=== PATIENT | female | born 1995 | race Caucasian/White ===

== ENCOUNTER → 2017-09-12 19:13 | Outpatient (CLI) | payer OTHER, SELFPAY ==
[2017-09-17 14:35] LABS: HPV APTIMA, High Risk Negative (Negative)
== END ==
PROVIDERS: Family Provider Family Medicine; PCP Family Medicine; Visit Provider Obstetrics & Gynecology
DX: Z12.4 Encounter for screening for malignant neoplasm of cervix (principal)
CPT/HCPCS: 88175; G0145

== ENCOUNTER → 2019-03-13 10:32 | Outpatient (CLI) | payer OTHER, SELFPAY ==
[2019-02-18 11:14] VITALS: BMI 40.0
[2019-03-13 11:47] LABS: Follicle Stimulating Hormone 3.2 mIU/mL; Prolactin 7.6 ng/mL; Thyroid Stim Hormone (TSH) 1.49 uIU/mL (0.358-3.74)
== END ==
PROVIDERS: Family Provider Family Medicine; PCP Family Medicine; Referring Provider Nurse Practitioner Women's Health; Visit Provider Nurse Practitioner Women's Health
DX: N91.2 Amenorrhea, unspecified (principal)
CPT/HCPCS: 36415; 83001; 84146; 84443

== ENCOUNTER → 2019-03-26 11:33 | Outpatient (CLI) | payer OTHER, SELFPAY ==
[2019-02-18 11:14] VITALS: BMI 40.0
[2019-03-26 13:23] LABS: Estradiol 78.4 pg/mL
== END ==
PROVIDERS: Family Provider Family Medicine; PCP Family Medicine; Referring Provider Obstetrics & Gynecology; Visit Provider Obstetrics & Gynecology
DX: E28.2 Polycystic ovarian syndrome (principal)
CPT/HCPCS: 36415; 82670

== ENCOUNTER → 2019-04-29 07:12 | Outpatient (CLI) | payer OTHER, SELFPAY ==
[2019-02-18 11:14] VITALS: BMI 40.0
[2019-04-29 07:54] LABS: Glucose 75GTT - Fasting 109 mg/dL (70-99)
[2019-04-29 08:01] LABS: AST(SGOT) 20 U/L (15-37); Alanine Aminotransfer ALT/SGPT 38 U/L (13-56); Albumin, Serum 3.8 g/dL (3.2-5.0); Alkaline Phosphatase 91 U/L (45-117); Anion Gap 6 (5-15); BUN 10 mg/dL (7-18); BUN/Creat Ratio 12.7 RATIO (10-20); Bilirubin, Direct 0.13 mg/dL (0.00-0.30); Calcium,Total 8.8 mg/dL (8.5-10.1); Chloride 105 mmol/L (98-107); Cholesterol 174 mg/dL (200); Creatinine, Serum 0.78 mg/dL (0.55-1.02); EST Glomerular Filtration Rate 95 mL/min (>60); Est Glom Filt Rate - Afr Amer 115 mL/min (>60); Globulin 4.6 g/dL (2.2-4.2); Glucose 110 mg/dL (74-106); High Density Lipoprotein 32 mg/dL; Phosphorus 3.3 mg/dL (2.5-4.9); Potassium 3.8 mmol/L (3.5-5.1); Protein, Total 8.4 g/dL (6.4-8.2); Sodium Level 138 mmol/L (136-145); Triglycerides 177 mg/dL; Very Low Density Lipoprotein 35 mg/dL (5-40)
[2019-04-29 08:04] LABS: Hemoglobin A1c 5.7 % (4.2-6.3)
[2019-04-29 09:15] LABS: Glucose 75GTT - 30 minutes 142 mg/dL (100-160)
[2019-04-29 09:15] LABS: Glucose 75GTT - 60 minutes 193 mg/dL (100-160)
[2019-04-29 09:17] LABS: Insulin 43.2 mU/L (2.6-37.6)
[2019-04-29 10:10] LABS: Glucose 75GTT - 120 minutes 176 mg/dL (70-140)
== END ==
PROVIDERS: Family Provider Family Medicine; PCP Family Medicine
DX: E16.8 Other specified disorders of pancreatic internal secretion (principal); N93.8 Other specified abnormal uterine and vaginal bleeding
CPT/HCPCS: 36415; 80048; 80061; 80076; 82951; 82952; 83036; 83525; 84100

== ENCOUNTER → 2019-11-03 14:22 | Outpatient (CLI) | payer OTHER, SELFPAY ==
[2019-11-03 13:52] VITALS: BMI 42.3
[2019-11-03 15:13] LABS: Hemoglobin A1c 5.6 % (3.8-5.6)
== END ==
PROVIDERS: PCP Physician Assistant; Referring Provider Obstetrics & Gynecology; Visit Provider Obstetrics & Gynecology
DX: E28.2 Polycystic ovarian syndrome (principal)
CPT/HCPCS: 36415; 83036

== ENCOUNTER → 2020-02-09 13:01 | Outpatient (CLI) | payer SELFPAY ==
[2019-11-03 13:52] VITALS: BMI 42.3
[2020-02-09 13:57] LABS: Follicle Stimulating Hormone 4.1 mIU/mL; hCG Titer Quant., Serum < 1 mIU/mL (1-3)
[2020-02-17 12:07] LABS: Testosterone, Free 0.85 ng/dL (0.10-0.85); Testosterone, Total 41 ng/dL (8-48)
[2020-02-17 13:09] LABS: Testosterone, % Free 2.08 % (0.50-2.80)
== END ==
PROVIDERS: PCP Physician Assistant; Referring Provider Obstetrics & Gynecology; Visit Provider Obstetrics & Gynecology
DX: E28.2 Polycystic ovarian syndrome (principal)
CPT/HCPCS: 36415; 83001; 84402; 84403; 84702

== ENCOUNTER → 2020-03-31 14:48 | Outpatient (CLI) | payer SELFPAY ==
[2019-11-03 13:52] VITALS: BMI 42.3
[2020-03-31 15:34] LABS: Progesterone Level 0.44 ng/mL (See Comment)
== END ==
PROVIDERS: PCP Physician Assistant; Referring Provider Nurse Practitioner Women's Health; Visit Provider Nurse Practitioner Women's Health
DX: E28.2 Polycystic ovarian syndrome (principal)
CPT/HCPCS: 36415; 84144

== ENCOUNTER → 2020-11-23 13:35 | Outpatient (CLI) | payer SELFPAY ==
[2019-11-03 13:52] VITALS: BMI 42.3
[2020-11-23 14:46] LABS: hCG Titer Quant., Serum 24378 mIU/mL (1-3)
== END ==
PROVIDERS: PCP Physician Assistant; Referring Provider Obstetrics & Gynecology; Visit Provider Obstetrics & Gynecology
DX: N91.2 Amenorrhea, unspecified (principal)
CPT/HCPCS: 36415; 84702

== ENCOUNTER → 2020-11-28 10:43 | Outpatient (CLI) | payer MEDICAID, SELFPAY ==
[2019-11-03 13:52] VITALS: BMI 42.3
--- NOTE | 2020-11-28 10:46 | US_ITS ---
INDICATION: dating EXAMINATION: Ultrasound US OB Transvaginal TECHNIQUE: Transabdominal pelvic ultrasound was performed. Grayscale, spectral waveform, and color flow Doppler evaluation of the adnexa. COMPARISON: None. LMP: [Unknown Beta-hCG: Unknown FINDINGS: UTERUS: 13.3 x 8.4 x 7.9 cm. No uterine leiomyomas are identified in the cervix is closed. RIGHT OVARY: Not visualized. LEFT OVARY: Not visualized. FREE FLUID: None. INTRAUTERINE GESTATIONAL SAC(s) (size/shape): Single. Size (Mean sac diameter) and shape. YOLK SAC: Identified and measures 6 mm in size POLE: Identified CRL 6.74 mm ESTIMATED GESTATION AGE: 13 weeks 0 days. HEART MOTION: 164 bpm. PLACENTA: Not visualized due to age. SUBCHORIONIC HEMORRHAGE: None. AMNIOTIC FLUID: Qualitatively normal. US/Transvaginal w/Preg US IMPRESSION: Single live intrauterine . Estimated gestational age is 13 weeks 0 days.. Electronically Signed: Raoul Hawley DO at 16:29 EDT Tel , Service support ,
== END ==
PROVIDERS: PCP Physician Assistant; Referring Provider Obstetrics & Gynecology; Visit Provider Obstetrics & Gynecology
DX: Z34.90 Encounter for supervision of normal pregnancy, unspecified, unspecified trimester (principal)
CPT/HCPCS: 76817

== ENCOUNTER → 2020-12-04 15:12 | Outpatient (CLI) | payer MEDICAID, SELFPAY ==
[2020-12-04 13:45] VITALS: BMI 38.5
[2020-12-04 15:50] LABS: Absolute Lymphocyte Count 1.86 X10^3/uL (0.83-4.51); Absolute Neutrophil Count 5.8 X10^3/uL (2.0-7.7); Basophil# 0.02 X10^3/uL; Basophil% 0.2 % (0-1); Eosinophil# 0.07 X10^3/uL; Eosinophils% 0.9 % (0-5); Hematocrit 33.4 % (37-47); Hemoglobin 10.4 g/dL (12.0-15.0); Lymphocyte # 1.86 X10^3/ul (0.83-4.51); Lymphocyte % 22.9 % (19-41); Mean Corp Hgb Conc 31.1 g/dL (32-36); Mean Corpuscular Hgb 23.4 pg (27.0-32.0); Mean Corpuscular Volume 75.2 fL (81-99); Mean Platelet Vol. 9.4 fl (6.2-12.0); Monocyte# 0.39 X10^3/uL; Monocyte% 4.8 % (0-10); NRBC Flagged by Analyzer 0 % (0-5); Neutrophil # 5.77 X10^3/uL (2.7-7.7); Platelet Count 227 K/mm3 (150-450); RBC Distribution Width CV 15.6 % (11.6-14.6); RBC Distribution Width SD 42.4 fl (35.1-43.9); Red Blood Count 4.44 M/mm3 (4.2-5.4); White Blood Count 8.1 K/mm3 (4.4-11.0)
[2020-12-04 16:00] LABS: Glucose Challenge Gest 1H 50g 119 mg/dL (70-140)
[2020-12-04 16:19] LABS: Amphetamine Urine VISTA NEGATIVE (<1000 ng/mL); Barbiturate Urine VISTA NEGATIVE (< 200 ng/mL); Benzodiazepine Urine VISTA NEGATIVE (< 200 ng/mL); Cocaine Urine VISTA NEGATIVE (< 300 ng/mL); Ecstacy Urine VISTA NEGATIVE (< 500 ng/mL); Methadone Urine VISTA NEGATIVE (< 300 ng/mL); PCP Urine VISTA NEGATIVE (< 25 ng/mL); THC Urine VISTA NEGATIVE (< 50 ng/mL); Vista UDS pH Range 6
[2020-12-05 16:19] LABS: HIV - WCH Non-Reactive (Nonreactive); Hepatitis B Surface Antigen Non-Reactive (Nonreactive); Hepatitis C Antibody Non-Reactive (Nonreactive); Rubella IgG Reactive (Nonreactive); Syphilis Antibodies Non-reactive
== END ==
PROVIDERS: PCP Physician Assistant; Referring Provider Obstetrics & Gynecology; Visit Provider Obstetrics & Gynecology
DX: Z34.90 Encounter for supervision of normal pregnancy, unspecified, unspecified trimester (principal); E88.81 Metabolic syndrome and other insulin resistance
CPT/HCPCS: 80307; 82950; 85025; 86703; 86762; 86780; 86803; 86850; 86900; 86901; 87077; 87086; 87088; 87186; 87340

== ENCOUNTER → 2021-01-15 08:19 | Outpatient (CLI) | payer MEDICAID, SELFPAY ==
--- NOTE | 2021-01-15 08:21 | US_ITS ---
STUDY: SECOND AND THIRD TRIMESTER OBSTETRICAL ULTRASOUND REASON FOR EXAM: Female, 25 years old anatomy LMP: 08/29/2020. TECHNIQUE: Transabdominal TECHNICAL QUALITY: Adequate. PRIOR ULTRASOUND: Comparison is made with prior study dated 11/28/2020. FINDINGS: There is a single intrauterine fetus. The fetus is in a cephalic presentation. There is demonstrated cardiac activity with a heart rate of 157 bpm. There is a normal amniotic fluid volume. The largest amniotic fluid pocket measures 3.4 cm. The amniotic fluid index (LUIS MIGUEL) is within normal limits. The placenta is anterior in location and is not low lying. There are Grade 0 placental changes. The cervix measures 3.6 cm in length. The bilateral adnexal regions are normal. BIOMETRY: BPD: 4.44 cm: 19 weeks, 2 days HC: 16.96 on: 19 weeks, 4 days AC: 15.17 sign: 20 weeks, 2 days FL: 3 cm: 90 weeks, 1 days CI: 74% FL/BPD: 68% FL/HC: FL/AC: 20% HC/AC: 1.12 age by current US: 19 weeks, 3 days. NEETU by current US: 06/08/2021. Estimated weight: 37 grams, +/- 48 grams, 45 %. age by prior US: 19 weeks, 6 days. NEETU by prior US: 06/05/2021. Age by LMP: 19 weeks, 6 days. NEETU by LMP: 06/05/2021. ANATOMY: Gender: Male Cranium: Normal lateral ventricles. Normal choroid plexus. Normal cerebellum. Normal cisterna magna. Normal face, nose and lips. Chest: Normal 4-chamber heart. Abdomen/Pelvis: Normal diaphragm. Normal stomach. Normal abdominal wall. Normal cord insertion. Normal 3 vessel cord. Normal kidneys. Normal bladder. Spine: Normal cervical spine. Normal thoracic spine. Normal lumbar spine. Normal sacrum. Extremities: Normal bilateral upper extremities. Normal bilateral lower extremities. US/OB Anatomy Scan IMPRESSION: Single live intrauterine gestation with a mean gestational age of 19 weeks and 6 days. The measurements obtained today following within the normal expected range. Electronically Signed: Vito Navarro MD at 16:04 EDT , Service support ,
== END ==
PROVIDERS: PCP Physician Assistant; Referring Provider Obstetrics & Gynecology; Visit Provider Obstetrics & Gynecology
DX: O09.90 Supervision of high risk pregnancy, unspecified, unspecified trimester (principal); Z3A.19 19 weeks gestation of pregnancy
CPT/HCPCS: 76805; 76817

== ENCOUNTER 2021-02-02 15:57 | Outpatient (CLI) | payer MEDICAID, SELFPAY ==
[2021-02-02] VITALS (8 sets, daily range): BP systolic 123–143; BP diastolic 58–66; PULSE 70–80; TEMP 36.8–37.1; O2SAT 99; BMI 36.8
[2021-02-02 17:16] LABS: Mucous, Urine 0 SEEN /hpf (<or=2+)
[2021-02-02 17:18] LABS: Color, Urine Yellow (Yellow); Glucose, Dipstick Normal (Normal); Hematocrit 30.4 % (37-47); Hemoglobin 9.4 g/dL (12.0-15.0); Ketone-Dipstick Negative (Negative); Leukocyte Esterase-Dipstick 500 /ul (Negative); Mean Corp Hgb Conc 30.9 g/dL (32-36); Mean Corpuscular Hgb 23.7 pg (27.0-32.0); Mean Corpuscular Volume 76.8 fL (81-99); Mean Platelet Vol. 11.2 fl (6.2-12.0); Nitrite-Dipstick Negative (Negative); Occult Blood-Urine 250 /ul (Negative); Platelet Count 236 K/mm3 (150-450); Protein-Dipstick 100 mg/dl (Negative); RBC Distribution Width CV 15.9 % (11.6-14.6); RBC Distribution Width SD 43.4 fl (35.1-43.9); Red Blood Count 3.96 M/mm3 (4.2-5.4); Urine Bilirubin Dipstick Negative (Negative); Urine Clarity Cloudy (Clear); Urine Urobilinogen Normal (Normal); White Blood Count 6.9 K/mm3 (4.4-11.0)
[2021-02-02 17:26] LABS: Red Blood Cells-Urine > 100 SEEN /hpf (0-5); Squamous Epithelial Cells - UA 0-5 SEEN /hpf (5-10); White Blood Cells 5-10 SEEN /hpf (0-5)
[2021-02-02 17:27] LABS: Bacteria 1+ /hpf (None Seen)
[2021-02-02 17:39] LABS: Fibrinogen 552 mg/dl (203-444); Partial Thromboplast Time 35.2 Seconds (24.1-36.2)
[2021-02-02 17:40] LABS: Prothrombin Time (Protime)PT. 12.7 SECONDS (11.7-14.9)
[2021-02-02] MEDS: Cephalexin 500 MG Capsule PO (18:49)
--- NOTE | 2021-02-02 19:02 | US_ITS ---
EXAM: US , Limited CLINICAL INDICATION: 25 years old, Female; cervical length and placenta r/o abruption -- 22 weeks gestation -- -- transvaginal us completed for cervical assessment TECHNIQUE: Real-time limited ultrasound of the maternal uterus with image documentation. This report was created using Rawporter report generation technology. COMPARISON: None. FINDINGS: Fetus: Single viable intrauterine . Gestational age: Estimated gestational age by ultrasound is 22 weeks 0 days. NEETU: Estimated date of delivery by ultrasound is 06/08/2021. Heart rate: heart rate is 1 44 bpm. Placenta: The placenta is anterior and marginal approximately 1 cm from the internal os. No abruption is identified. Amniotic fluid: Amniotic fluid volume is grossly normal. Cervix: The cervix is 4 cm in length and is closed. There appears to be some fluid within the cervix. Just above the cervical os there is a fluid collection measuring 1.6 x 0.6 x 0.5 cm. There is also questionable defect in the membrane overlying the cervix. US/OB Limited (No Biometrics) IMPRESSION: 1. Single viable intrauterine . 2. The placenta is anterior and marginal approximately 1 cm from the internal os. No abruption is identified. 3. The cervix is 4 cm in length and is closed. There appears to be some fluid within the cervix. Just above the cervical os there is a fluid collection measuring 1.6 x 0.6 x 0.5 cm. There is also questionable defect in the membrane overlying the cervix. Close interval follow-up recommended. ASSESSMENT: ABNORMAL report - There are abnormal findings in this report which may be related or unrelated to the reason for the exam. Electronically Signed: Raoul Palencia MD at 20:42 EDT Tel , Service support ,
--- NOTE | 2021-02-02 21:50 | OB.TRI.HP_ITS ---
Maternal Data Information NEETU Calculator Estimated Delivery Date Method Current WG Current Estimate 06/05/21 Ultrasound #1 22w 3d Other Estimates 05/28/21 LMP (Uncertain) 23w 4d PFS PFS Medical History Anemia PCOS (polycystic ovarian syndrome) Pre-diabetes Home Medications docosahexaenoic acid 200 mg capsule mg PO 11/03/19 [History Last Taken Unknown] metformin 500 mg tablet 500 mg PO BID 11/03/19 [History Last Taken Unknown] sertraline 50 mg tablet 75 mg PO DAILY #45 tab 01/05/21 [Rx Last Taken Unknown] cephalexin 500 mg PO BID #14 cap 02/02/21 [Rx Last Taken Unknown] Allergy/AdvReac Type Severity Reaction Status Date / Time acetaminophen [From NyQuil] Allergy Mild hives Verified 02/02/21 17:44 dextromethorphan Allergy Mild hives Verified 02/02/21 17:44 [From NyQuil] doxylamine [From NyQuil] Allergy Mild hives Verified 02/02/21 17:44 pseudoephedrine [From NyQuil] Allergy Mild hives Verified 02/02/21 17:44 Family History Grandmother Breast cancer Mother Hypertension Surgical History H/O dilation and curettage (~01/14/17) Social History Smoking Status: Never smoker alcohol intake: never substance use type: does not use caffeine: No what type of physical activity do you participate in: walking frequency: 5-6 times per week seatbelt use: always do you feel safe at home: Yes additional social history: -Oscar- Warehouse Patient is self employed at a day care History 1 Elective abortions Hx Para Spontaneous abortions Hx # Term Pregnancies Ectopic pregnancies Hx # Pregnancies Multiple births # of living children Visit Details Expected Delivery Route/Plan Labor Preferences- CB/BF classes: [] labor support person: [] labor intervention preferences: [] pain management options preferred: [] cut cord/dad catch: [] : [] PP control planned: [] discussed possible routes of delivery and associated risks: [] special requests: [] Plans Covid status: [] Flu vaccine: [] Tdap vaccine: [] Rhogam: [] LARC form signed: [] Problem list reviewed and updated with the most current plan of care details and appropriate orders placed. Relevant counseling for the gestational age provided. Continue routine care and follow up unless otherwise noted in visit notes/problem list details OB Flowsheet Initial Weight: Not Recorded Date -?-?-?-?-?-?-?-?-?-?-?-?- EGA Weight BP Urine Prot -?-?-?-?-?-?-?-?-?-?-?-?- Glucose FHR FuHt Pres Dilation -?-?-?-?-?-?-?-?-?-?-?-?- Effaced St Visit Note 12/04/20 -?-?--?-?-?-?-?-?-?-?-?-?- 13w 6d 224 lb 8 oz 138/78 -?-?-?-?-?-?-?-?-?-?-?-?- 160 -?-?-?-?-?-?-?-?-?-?-?-?- GP - dated by US at 13/0 01/05/21 -?-?-?-?-?-?-?-?-?-?-?-?- 18w 3d 225 lb 4 oz 124/78 Trac e -?-?-?-?-?-?-?-?-?-?-?-?- Negative 169 -?-?-?-?-?-?-?-?-?-?-?-?- GP - no cramping or bleeding. Anatomy scan ordered. NOB labs nl. 02/01/21 -?-?-?-?-?-?-?-?-?-?-?-?- 22w 2d 222 lb 4 oz 118/76 Trac e -?-?-?-?-?-?-?-?-?-?-?-?- Negative 150 23 -?-?-?-?-?-?-?-?-?-?-?-?- GP - no ctx, LOF , VB, DFM. Anatomy nl. GCT next visit. 02/02/21 -?-?-?-?-?-?-?-?-?-?-?-?- 22w 3d 214 lb 4 oz 133/62 129/66 143/63 132/60 100 mg/dl (Negative) H -?-?-?-?-?-?-?-?-?-?-?-?- -?-?-?-?-?-?-?-?-?-?-?-?- ROS Constitutional Constitutional: Denies fever(s) or weakness Eyes Eyes: Reports systems reviewed and no addt'l complaints, except as documented ENT HEENT: Reports systems reviewed and no addt'l complaints, except as documented Cardiovascular Cardiovascular: Reports systems reviewed and no addt'l complaints, except as documented Respiratory/Chest Respiratory/Chest: Reports systems reviewed and no addt'l complaints, except as documented Gastrointestinal Gastrointestinal: Denies abdominal pain, nausea or vomiting Genitourinary Genitourinary: Reports other Details: vaginal bleeding ; Denies abdominal discomfort, burning urination, contractions or difficulty urinating Musculoskeletal Musculoskeletal: Reports systems reviewed and no addt'l complaints, except as documented Integumentary Integumentary: Reports systems reviewed and no addt'l complaints, except as documented Physical Exam Const alert, oriented x3, no apparent distress, average body habitus, healthy appearing and well nourished HEENT normocephalic and moist oral mucous membranes Head and Scalp: atraumatic Eyes PERRL and EOMs intact bilaterally Neck full ROM Resp normal respiratory effort, no retractions and no use of accessory muscles Cardio regular rate and regular rhythm GI soft to palpation, non-tender and non-distended Narrative: Cervix visually closed. Small clot noted in the posterior fornix on initial exam with no active bleeding. Repeat exam 4 hours later shows cervix remains closed with additional small clot noted. No active bleeding. Has had multiple small gushes of bright red blood with movement throughout triage stay Extremity normal to inspection and full ROM Skin no rashes or lesions noted Neuro no focal motor deficits and no sensory deficits noted Psych mental status grossly normal, affect normal, speech normal and activity/motor behavior normal NST FHR Rate Baby A Baseline: 150 Uterine Activity:: none Assessment & Plan (1) Vaginal bleeding during : PLAN: Patient presents with vaginal bleeding starting this afternoon with a gush of blood that soaked through her underwear and her pants On arrival, cervix noted to be closed with clots starting in the vagina with no active bleeding noted coming through the cervix CBC showed hemoglobin of 9.4 Coags were unremarkable with a fibrinogen of 552 Throughout her triage course, she continued to have blood with ambulation and voiding. The decision was made to perform a transvaginal ultrasound to evaluate cervical length and placental location Ultrasound demonstrated cervix 1 cm from internal os. Cervix was closed and measured 4 cm in length with fluid noted inside the cervical canal. A fluid collection was noted above the cervix measuring 1.6 x 0.6x0.5 cm and there was concern for a questionable defect in the membranes overlying the cervix. It was discussed with the patient that given that she is in the periviable period and is having bleeding with concern for rupture of membranes, I would recommend transport to the hospital with a higher level of care. Patient was discussed with Dr. López with [facility] maternal- medicine who agrees to accept the transport for further evaluation and monitoring.
--- NOTE | 2021-02-02 22:32 | HP.PCM.OB_ITS ---
HPI - General HPI Narrative PARMJIT LUGO, is a 25 F at 17/07 who presents with acute onset vaginal bleeding. This afternoon, she was washing dishes when she noticed a large gush. She went to the restroom and found that she had fully soaked through her underwear and her pants. Denies cramping or contractions. Has had intermittent ongoing bleeding since this time. Denies recent abdominal trauma. Denies recent intercourse. Maternal Data Information NEETU Calculator Estimated Delivery Date Method Current WG Current Estimate 06/05/21 Ultrasound #1 22w 3d Other Estimates 05/28/21 LMP (Uncertain) 23w 4d PFSH PFS Medical History Anemia PCOS (polycystic ovarian syndrome) Pre-diabetes Home Medications docosahexaenoic acid 200 mg capsule mg PO 11/03/19 [History Last Taken Unknown] metformin 500 mg tablet 500 mg PO BID 11/03/19 [History Last Taken Unknown] sertraline 50 mg tablet 75 mg PO DAILY #45 tab 01/05/21 [Rx Last Taken Unknown] cephalexin 500 mg PO BID #14 cap 02/02/21 [Rx Last Taken Unknown] Allergy/AdvReac Type Severity Reaction Status Date / Time acetaminophen [From NyQuil] Allergy Mild hives Verified 02/02/21 17:44 dextromethorphan Allergy Mild hives Verified 02/02/21 17:44 [From NyQuil] doxylamine [From NyQuil] Allergy Mild hives Verified 02/02/21 17:44 pseudoephedrine [From NyQuil] Allergy Mild hives Verified 02/02/21 17:44 Family History Grandmother Breast cancer Mother Hypertension Surgical History H/O dilation and curettage (~01/14/17) Social History Smoking Status: Never smoker alcohol intake: never substance use type: does not use caffeine: No what type of physical activity do you participate in: walking frequency: 5-6 times per week seatbelt use: always do you feel safe at home: Yes additional social history: -Oscar- Warehouse Patient is self employed at a day care History 1 Elective abortions Hx Para Spontaneous abortions Hx # Term Pregnancies Ectopic pregnancies Hx # Pregnancies Multiple births # of living children Visit Details Expected Delivery Route/Plan Labor Preferences- CB/BF classes: [] labor support person: [] labor intervention preferences: [] pain management options preferred: [] cut cord/dad catch: [] : [] PP control planned: [] discussed possible routes of delivery and associated risks: [] special requests: [] Plans Covid status: [] Flu vaccine: [] Tdap vaccine: [] Rhogam: [] LARC form signed: [] Problem list reviewed and updated with the most current plan of care details and appropriate orders placed. Relevant counseling for the gestational age provided. Continue routine care and follow up unless otherwise noted in visit notes/problem list details OB Flowsheet Initial Weight: Not Recorded Date -?-?-?-?-?-?--?-?-?-?-?-?- EGA Weight BP Urine Prot -?-?-?-?-?-?-?-?-?-?-?-?- Glucose FHR FuHt Pres Dilation -?-?-?-?-?-?-?-?-?-?-?-?- Effaced St Visit Note 12/04/20 -?-?-?-?-?-?-?-?-?-?-?-?- 13w 6d 224 lb 8 oz 138/78 -?-?-?-?-?-?-?-?-?-?-?-?- 160 -?-?-?-?-?-?-?-?-?-?-?-?- GP - dated by US at 13/0 01/05/21 -?-?-?-?-?-?-?-?-?-?-?-?- 18w 3d 225 lb 4 oz 124/78 Trac e -?-?-?-?-?-?-?-?-?-?-?-?- Negative 169 -?-?-?-?-?-?-?-?-?-?-?-?- GP - no cramping or bleeding. Anatomy scan ordered. NOB labs nl. 02/01/21 -?-?-?-?-?-?--?-?-?-?-?-?- 22w 2d 222 lb 4 oz 118/76 Trac e -?-?-?-?-?-?-?-?-?-?-?-?- Negative 150 23 -?-?-?-?-?-?-?-?-?-?-?-?- GP - no ctx, LOF , VB, DFM. Anatomy nl. GCT next visit. 02/02/21 -?-?-?-?-?-?-?-?-?-?-?-?- 22w 3d 214 lb 4 oz 133/62 129/66 143/63 132/60 100 mg/dl (Negative) H -?-?-?-?-?-?-?-?-?-?-?-?- -?-?-?-?-?-?-?-?-?-?-?-?- ROS Constitutional Constitutional: Denies fatigue or fever(s) Eyes Eyes: Reports systems reviewed and no addt'l complaints, except as documented ENT HEENT: Reports systems reviewed and no addt'l complaints, except as documented Cardiovascular Cardiovascular: Reports systems reviewed and no addt'l complaints, except as documented; Denies lightheadedness Respiratory/Chest Respiratory/Chest: Reports systems reviewed and no addt'l complaints, except as documented Gastrointestinal Gastrointestinal: Reports systems reviewed and no addt'l complaints, except as documented; Denies abdominal pain, nausea or vomiting Genitourinary Genitourinary: Reports systems reviewed and no addt'l complaints, except as documented, movement and other Details: vaginal bleeding ; Denies abdominal discomfort, contractions, difficulty urinating, dysuria or urinary frequency Musculoskeletal Musculoskeletal: Reports systems reviewed and no addt'l complaints, except as documented Integumentary Integumentary: Reports systems reviewed and no addt'l complaints, except as documented Neurologic Neurologic: Reports systems reviewed and no addt'l complaints, except as documented Psychiatric Psychiatric: Reports systems reviewed and no addt'l complaints, except as documented Endocrine Endocrinology: Reports systems reviewed and no addt'l complaints, except as documented Hematologic/Lymphatic Hematologic/Lymphatic: Reports systems reviewed and no addt'l complaints, except as documented Allergic/Immunologic Allergic/Immunologic: Reports systems reviewed and no addt'l complaints, except as documented Vital Signs Vital Signs Vital Signs: 02/02/21 16:37 02/02/21 18:28 02/02/21 18:33 Temperature 98.7 F Temperature Source Temporal Pulse Rate 78 80 Blood Pressure 133/62 H 129/66 H BP Systolic 133 129 BP Diastolic 62 66 Pulse Ox 02/02/21 20:06 02/02/21 21:26 02/02/21 21:27 Temperature 98.3 F 98.4 F Temperature Source Temporal Temporal Pulse Rate 77 78 Blood Pressure 143/63 H 132/60 H BP Systolic 143 132 BP Diastolic 63 60 Pulse Ox 99 99 Weight Weight: 214 lb 4 oz Body Mass Index (BMI) 36.8 Physical Exam Const alert, oriented x3, no apparent distress, average body habitus, healthy appearing and well nourished HEENT normocephalic and moist oral mucous membranes Head and Scalp: atraumatic Eyes PERRL and EOMs intact bilaterally Neck full ROM Resp normal respiratory effort, no retractions and no use of accessory muscles Cardio regular rate and regular rhythm GI soft to palpation, non-tender and non-distended Narrative: Cervix visually closed. Small clot noted in the posterior fornix on initial exam with no active bleeding. Repeat exam 4 hours later shows cervix remains closed with additional small clot noted. No active bleeding. Has had multiple small gushes of bright red blood with movement throughout triage stay Extremity normal to inspection and full ROM Skin no rashes or lesions noted Neuro no focal motor deficits and no sensory deficits noted Psych mental status grossly normal, affect normal, speech normal and activity/motor behavior normal Labs Labs Labs: Blood Type O POSITIVE Antibody Screen NEGATIVE Hct 30.4 % (37-47) L Hgb 9.4 g/dL (12.0-15.0) L Obstetrics US Syphilis Total Ab Non-reactive Rubella IgG Antibody Reactive (Nonreactive) Hep Bs Antigen Non-Reactive (Nonreactive) HIV 1&2 Antibody Non-Reactive (Nonreactive) Glucose 1 Hr 50 gm 119 mg/dL (70-140) Miscellaneous Test Assessment & Plan (1) Vaginal bleeding during : PLAN: Patient presents with vaginal bleeding starting this afternoon with a gush of blood that soaked through her underwear and her pants On arrival, cervix noted to be closed with clots starting in the vagina with no active bleeding noted coming through the cervix CBC showed hemoglobin of 9.4 Coags were unremarkable with a fibrinogen of 552 Throughout her triage course, she continued to have blood with ambulation and voiding. The decision was made to perform a transvaginal ultrasound to evaluate cervical length and placental location Ultrasound demonstrated cervix 1 cm from internal os. Cervix was closed and measured 4 cm in length with fluid noted inside the cervical canal. A fluid collection was noted above the cervix measuring 1.6 x 0.6x0.5 cm and there was concern for a questionable defect in the membranes overlying the cervix. It was discussed with the patient that given that she is in the periviable period and is having bleeding with concern for rupture of membranes, I would recommend transport to the hospital with a higher level of care. Patient was discussed with Dr. López with [facility] maternal- medicine who agreed with plan for transport. Upon repeat discussion with patient and her , they refused transport and are requesting observation at [facility]. Discussed that my concern with staying here is in cases of vaginal bleeding in especially when associated with a low-lying placenta or placenta previa, bleeding and change from light bleeding to hemorrhage very rapidly. Discussed that in the event of hemorrhage, there is nothing that we would be able to do with in our facility to attempt to resuscitate the baby. Patient and her are aware that if she stays here and she were to deliver, resuscitation would not be possible. They are also aware that this is a complex obstetrical situation that typically managed in conjunction with the maternal- medicine specialist which is not available within our facility. They continue to refuse transport and request observation this facility. We will plan to admit patient for observation. Will plan pad counts. Repeat CBC and fibrinogen pending at this time-we will plan to repeat in the morning. Type and screen also collected. We will plan for clear liquid diet given concern for worsening of bleeding. Plan bedrest with bathroom priveleges Depending on amount of bleeding, will consider repeat ultrasound tomorrow. (2) Other social stressor: COMMENT: Guardians for 2 yo son Barney - have custody hearing on 02/15 and hoping to get custody (3) Anemia: COMMENT: iron supplement (4) Supervision of high risk , antepartum: COMMENT: PRR NEETU:2/8/22 PC:Barney(Adopting) Spouse:Oscar (5) : QUALIFIERS: Weeks of gestation: 22 weeks Qualified Code(s): Z3A.22 - 22 weeks gestation of COMMENT: Declines NIPT and carrier, nl anatomy (6) Insulin resistance: COMMENT: On metformin prior to . 1h GCT nl at NOB. No metformin. repeat GCT 24-28 wks (7) PCOS (polycystic ovarian syndrome): COMMENT: previously failed femara. Conceived spontaneously. Charges/Coding Visit Charges OBSV E&M: 94649 Initial observation care L2
[2021-02-02] MEDS: 0.9% Saline Lock 10 ML Syringe IV (22:50)
[2021-02-02 23:32] LABS: Absolute Lymphocyte Count 2.13 X10^3/uL (0.83-4.51); Absolute Neutrophil Count 4.3 X10^3/uL (2.0-7.7); Basophil# 0.03 X10^3/uL; Basophil% 0.4 % (0-1); Eosinophil# 0.05 X10^3/uL; Eosinophils% 0.7 % (0-5); Hematocrit 29.4 % (37-47); Hemoglobin 9.3 g/dL (12.0-15.0); Lymphocyte # 2.13 X10^3/ul (0.83-4.51); Lymphocyte % 30.7 % (19-41); Mean Corp Hgb Conc 31.6 g/dL (32-36); Mean Corpuscular Hgb 24.4 pg (27.0-32.0); Mean Corpuscular Volume 77.2 fL (81-99); Mean Platelet Vol. 10.2 fl (6.2-12.0); Monocyte# 0.42 X10^3/uL; Monocyte% 6.1 % (0-10); NRBC Flagged by Analyzer 0 % (0-5); Neutrophil # 4.26 X10^3/uL (2.7-7.7); Neutrophil % 61.5 % (47-70); Platelet Count 216 K/mm3 (150-450); RBC Distribution Width CV 16.1 % (11.6-14.6); RBC Distribution Width SD 44.2 fl (35.1-43.9); Red Blood Count 3.81 M/mm3 (4.2-5.4); White Blood Count 6.9 K/mm3 (4.4-11.0)
[2021-02-03] VITALS (8 sets, daily range): BP systolic 120–132; BP diastolic 65–72; PULSE 70–90; TEMP 36.4–36.9; O2SAT 98–99
[2021-02-03 00:21] LABS: Fibrinogen 595 mg/dl (203-444)
[2021-02-03 06:33] LABS: Absolute Lymphocyte Count 2.09 X10^3/uL (0.83-4.51); Absolute Neutrophil Count 3.5 X10^3/uL (2.0-7.7); Basophil# 0.02 X10^3/uL; Basophil% 0.3 % (0-1); Eosinophil# 0.05 X10^3/uL; Eosinophils% 0.8 % (0-5); Hematocrit 29.5 % (37-47); Hemoglobin 8.9 g/dL (12.0-15.0); Lymphocyte # 2.09 X10^3/ul (0.83-4.51); Lymphocyte % 34.3 % (19-41); Mean Corp Hgb Conc 30.2 g/dL (32-36); Mean Corpuscular Hgb 23.6 pg (27.0-32.0); Mean Corpuscular Volume 78.2 fL (81-99); Mean Platelet Vol. 10.2 fl (6.2-12.0); Monocyte# 0.38 X10^3/uL; Monocyte% 6.2 % (0-10); NRBC Flagged by Analyzer 0 % (0-5); Neutrophil # 3.54 X10^3/uL (2.7-7.7); Neutrophil % 58.1 % (47-70); Platelet Count 191 K/mm3 (150-450); RBC Distribution Width CV 16.1 % (11.6-14.6); RBC Distribution Width SD 45.1 fl (35.1-43.9); Red Blood Count 3.77 M/mm3 (4.2-5.4); White Blood Count 6.1 K/mm3 (4.4-11.0)
[2021-02-03 06:51] LABS: Fibrinogen 592 mg/dl (203-444)
--- NOTE | 2021-02-03 09:43 | PN.OBGYN_ITS ---
Subjective Subjective Patient seen and examined this morning. Reports the bleeding has decreased significantly-only having brown spotting. No further breakthrough bleeding. Denies pain. Reports normal movement. Denies loss of fluid. Denies contractions or cramping. Objective Data Objective Data Vital Signs: Vital Signs Temp Pulse BP Pulse Ox 97.9 F 82 122/65 H 99 02/03/21 08:39 02/03/21 08:41 02/03/21 08:41 02/03/21 06:13 Weight: 214 lb 4 oz Body Mass Index (BMI) 36.8 Lab / Micro Data Result Diagrams: 02/03/21 06:26 Labs: Laboratory Results - last 24 hr 02/02/21 17:00: Urine Color Yellow, Urine Clarity Cloudy, Urine pH 7.0, Ur Specific [place] 1.020, Urine Protein 100 H, Urine Glucose (UA) Normal, Urine Ketones Negative, Urine Occult Blood 250 H, Urine Nitrite Negative, Urine Bilirubin Negative, Urine Urobilinogen Normal, Ur Leukocyte Esterase 500 H, Urine RBC > 100 SEEN, Urine WBC 5-10 SEEN, Ur Squamous Epith Cells 0-5 SEEN, Urine Bacteria 1+, Urine Mucus 0 SEEN 02/02/21 17:00: WBC 6.9, RBC 3.96 L, Hgb 9.4 L, Hct 30.4 L, MCV 76.8 L, MCH 23.7 L, MCHC 30.9 L, RDW Std Deviation 43.4, RDW Coeff of Marlen 15.9 H, Plt Count 236, MPV 11.2 02/02/21 17:00: APTT 35.2, Fibrinogen 552 H 02/02/21 17:00: PT 12.7, INR 1.0 02/02/21 22:50: WBC 6.9, RBC 3.81 L, Hgb 9.3 L, Hct 29.4 L, MCV 77.2 L, MCH 24.4 L, MCHC 31.6 L, RDW Std Deviation 44.2 H, RDW Coeff of [place]len 16.1 H, Plt Count 216, MPV 10.2, Immature Gran % (Auto) 0.600, Neut % (Auto) 61.5, Lymph % (Auto) 30.7, [place] % (Auto) 6.1, Eos % (Auto) 0.7, Baso % (Auto) 0.4, Absolute Neuts (auto) 4.3, Absolute Lymphs (auto) 2.13, Nucleated RBC % 0 02/02/21 22:50: Fibrinogen 595 H 02/02/21 22:50: Blood Type O POSITIVE, Antibody Screen NEGATIVE 02/03/21 06:26: Fibrinogen 592 H 02/03/21 06:26: WBC 6.1, RBC 3.77 L, Hgb 8.9 L, Hct 29.5 L, MCV 78.2 L, MCH 23.6 L, MCHC 30.2 L, RDW Std Deviation 45.1 H, RDW Coeff of [place]len 16.1 H, Plt Count 191, MPV 10.2, Immature Gran % (Auto) 0.300, Neut % (Auto) 58.1, Lymph % (Auto) 34.3, [place] % (Auto) 6.2, Eos % (Auto) 0.8, Baso % (Auto) 0.3, Absolute Neuts (auto) 3.5, Absolute Lymphs (auto) 2.09, Nucleated RBC % 0 Radiography Diagnostic Testing: Radiology Impression Obstetrics Ultrasound 02/02/21 19:02 IMPRESSION: 1. Single viable intrauterine . 2. The placenta is anterior and marginal approximately 1 cm from the internal os. No abruption is identified. 3. The cervix is 4 cm in length and is closed. There appears to be some fluid within the cervix. Just above the cervical os there is a fluid collection measuring 1.6 x 0.6 x 0.5 cm. There is also questionable defect in the membrane overlying the cervix. Close interval follow-up recommended. ASSESSMENT: ABNORMAL report - There are abnormal findings in this report which may be related or unrelated to the reason for the exam. Electronically Signed: Raoul Palencia MD at 20:42 EDT Tel , Service support , ROS Constitutional Constitutional: Denies fever(s) Cardiovascular Cardiovascular: Denies lightheadedness Gastrointestinal Gastrointestinal: Denies constipation or diarrhea Genitourinary Genitourinary: Reports other Details: brown bleeding ; Denies abdominal discomfo rt Neurologic Neurologic: Denies dizziness or headache(s) Physical Exam Const alert, oriented x3, no apparent distress, average body habitus, healthy appearing and well nourished HEENT normocephalic and moist oral mucous membranes Head and Scalp: atraumatic Eyes PERRL and EOMs intact bilaterally Neck full ROM Resp normal respiratory effort, no retractions and no use of accessory muscles Cardio regular rate and regular rhythm GI soft to palpation, non-tender and non-distended Extremity normal to inspection and full ROM Skin no rashes or lesions noted Neuro no focal motor deficits and no sensory deficits noted Psych mental status grossly normal, affect normal, speech normal and activity/motor be havior normal NST FHR Rate Baby A Baseline: 140 Uterine Activity:: none Assessment & Plan (1) Vaginal bleeding during : PLAN: Patient admitted for vaginal bleeding during following presentation for acute onset bright red bleeding Ultrasound yesterday demonstrated placenta 1 cm from internal os. Cervix was closed and measured 4 cm in length with fluid noted inside the cervical canal. A fluid collection was noted above the cervix measuring 1.6 x 0.6x0.5 cm and there was concern for a questionable defect in the membranes overlying the cervix. Patient remained at [facility] following declining recommendation of transport to higher level of care. CBC and fibrinogen have remained stable Patient's bleeding has now decreased to brown spotting. Has not had any further bright red bleeding since last night. Denies pain or cramping. Dopp tones within normal limits. [place] quiet. Discussed with patient that given that she is just now having only brown spotting and has not had further red bleeding, I would recommend remaining inpatient until this afternoon to allow for 24 hours of monitoring. As long as bleeding remains minimal and maternal and status remains reassuring, will plan for discharge to home this evening. Discussed recommendation for light activity and pelvic rest. We will plan for maternal- medicine referral this week for repeat ultrasound and evaluation.
--- NOTE | 2021-02-03 09:49 | PCM.DC.SUM ---
Providers Primary Care Physician: KEO Landaverde Reason For Visit: MATERNITY - BLEEDING Diagnosis Discharge Diagnosis (1) Vaginal bleeding during : Status: Acute Code(s): O46.90 - Antepartum hemorrhage, unspecified, unspecified trimester Medications at Discharge Home Medications docosahexaenoic acid 200 mg capsule mg PO 11/03/19 sertraline 50 mg tablet 75 mg PO DAILY #45 tab 01/05/21 cephalexin 500 mg PO BID #14 cap 02/02/21 Hospital Course Operations None Procedures None Summary of Care Provided Hospital Course: Patient is a 25-year-old G1, P0 at 22 weeks gestation who initially presented with bright red vaginal bleeding. During her triage course, CBC and fibrinogen were checked and found to be normal. She had ongoing bleeding therefore an ultrasound was ordered. Ultrasound demonstrated placenta 1 cm from internal os. Cervix was closed and measured 4 cm in length with fluid noted inside the cervical canal. A fluid collection was noted above the cervix measuring 1.6 x 0.6x0.5 cm and there was concern for a questionable defect in the membranes overlying the cervix. Recommendation was made for transport to [place] for further evaluation and management by maternal- medicine the patient and her refused. Patient was admitted and observed for a total of 24 hours. Bleeding increased from bright red bleeding to brown spotting. Labs remained stable. She was discharged home in stable condition on 02 03. Weight / BMI Weight Weight: 214 lb 4 oz Body Mass Index (BMI) 36.8 ABG / Lab / Microbiology Data Result Diagrams: 02/03/21 06:26 Laboratory: Laboratory Results - last 24 hr 02/02/21 17:00: Urine Color Yellow, Urine Clarity Cloudy, Urine pH 7.0, Ur Specific [place] 1.020, Urine Protein 100 H, Urine Glucose (UA) Normal, Urine Ketones Negative, Urine Occult Blood 250 H, Urine Nitrite Negative, Urine Bilirubin Negative, Urine Urobilinogen Normal, Ur Leukocyte Esterase 500 H, Urine RBC > 100 SEEN, Urine WBC 5-10 SEEN, Ur Squamous Epith Cells 0-5 SEEN, Urine Bacteria 1+, Urine Mucus 0 SEEN 02/02/21 17:00: WBC 6.9, RBC 3.96 L, Hgb 9.4 L, Hct 30.4 L, MCV 76.8 L, MCH 23.7 L, MCHC 30.9 L, RDW Std Deviation 43.4, RDW Coeff of Marlen 15.9 H, Plt Count 236, MPV 11.2 02/02/21 17:00: APTT 35.2, Fibrinogen 552 H 02/02/21 17:00: PT 12.7, INR 1.0 02/02/21 22:50: WBC 6.9, RBC 3.81 L, Hgb 9.3 L, Hct 29.4 L, MCV 77.2 L, MCH 24.4 L, MCHC 31.6 L, RDW Std Deviation 44.2 H, RDW Coeff of Marlen 16.1 H, Plt Count 216, MPV 10.2, Immature Gran % (Auto) 0.600, Neut % (Auto) 61.5, Lymph % (Auto) 30.7, [place] % (Auto) 6.1, Eos % (Auto) 0.7, Baso % (Auto) 0.4, Absolute Neuts (auto) 4.3, Absolute Lymphs (auto) 2.13, Nucleated RBC % 0 02/02/21 22:50: Fibrinogen 595 H 02/02/21 22:50: Blood Type O POSITIVE, Antibody Screen NEGATIVE 02/03/21 06:26: Fibrinogen 592 H 02/03/21 06:26: WBC 6.1, RBC 3.77 L, Hgb 8.9 L, Hct 29.5 L, MCV 78.2 L, MCH 23.6 L, MCHC 30.2 L, RDW Std Deviation 45.1 H, RDW Coeff of Marlen 16.1 H, Plt Count 191, MPV 10.2, Immature Gran % (Auto) 0.300, Neut % (Auto) 58.1, Lymph % (Auto) 34.3, [place] % (Auto) 6.2, Eos % (Auto) 0.8, Baso % (Auto) 0.3, Absolute Neuts (auto) 3.5, Absolute Lymphs (auto) 2.09, Nucleated RBC % 0 Radiography Diagnostic Testing: Radiology Impression Obstetrics Ultrasound 02/02/21 19:02 IMPRESSION: 1. Single viable intrauterine . 2. The placenta is anterior and marginal approximately 1 cm from the internal os. No abruption is identified. 3. The cervix is 4 cm in length and is closed. There appears to be some fluid within the cervix. Just above the cervical os there is a fluid collection measuring 1.6 x 0.6 x 0.5 cm. There is also questionable defect in the membrane overlying the cervix. Close interval follow-up recommended. ASSESSMENT: ABNORMAL report - There are abnormal findings in this report which may be related or unrelated to the reason for the exam. Electronically Signed: Raoul Palencia MD at 20:42 EDT Tel , Service support , D/C Instructions Discharge Diet: No restrictions Discharge Activity: May Shower and - (light activity) May resume sexual activity in: - (pelvic rest until cleared by physician) Call your doctor if your incision/area has: Sudden Increased Bleeding, Increased Pain/ Swelling and Foul Smelling Discharge Call your doctor if you observe: Fever of 101 or Higher, Inability to urinate, Shortness of breath, Dizziness, Chest pain, Calf discomfort, Uncontrolled pain and - (bleeding requiring wearing a pad) Meaningful Use Info Meaningful Use Diagnoses (Choose all that apply): None applicable Discharge Plan Admission Reason For Visit: MATERNITY - BLEEDING Attending Provider: Makeda George Primary Care Provider: Sharmin August Discharge Orders/Prescriptions Prescriptions: New cephalexin 500 mg capsule 500 mg PO BID Qty: 14 RF: 0 Continued DHA 200 mg capsule PO RF: 0 sertraline 50 mg tablet 75 mg PO DAILY Qty: 45 RF: 4 Referrals / Follow Up: Sharmin August PA [Primary Care Provider] - Disposition Patient Disposition: Home, Self Care
[2021-02-03] MEDS: Cephalexin 500 MG Capsule PO (10:46)
--- NOTE | 2021-02-03 13:35 | CASEMGMT ---
Social Work Brief Assessment Labor and Delivery Unit Refer documentation below for further details. Date of Referral/Notification: 02/03/21 Time of Referral: 10:15a Referred By: Nursing Reason for Referral: Patient and refusing transfer Date of Intervention: 02/03/21 Time of Intervention: 13:35 Informant: Medical record and mother of baby (MOB) History: SIMRAN is 22 weeks and 4 days presented with vaginal bleeding, refused transfer Assessment: Met with MOB and FOB in room. Introduced role and reason for referral. SIMRAN reports is 22 weeks and was having vaginal bleeding. MOB reports no bleeding today and plan for discharge after 4p. MOB states she and FOB declined transfer as they didn?t want to ?jump the gun? and be transferred. Discussed MOB?s possible medical needs and staff wanting MOB and baby to have the care needed. MOB reports values staff concern?s, but that she and felt comfortable with not being transferred. SIMRAN reports has a toddler at home, who is currently in her mother?s care, whom they have been fostering and plan to adopt. MOB reports good support from family and declines any issues. SIMRAN reports will be following up with maternal- medicine in [place] after discharge. Discussed the above with nursing, as long as MOB does not have any bleeding will discharge after 4p today. Plan: Home with follow up with maternal- medicine. No further needs requested or indicated. Shantal Wilson, RETAIL STORE ASSOCIATE, CIVIL ENGINEERING DRAFTER
== END 2021-02-03 16:23 | disposition home or self-care (01) ==
LOC: WPOUT 16:03 → WP 16:03
PROVIDERS: PCP Physician Assistant; Referring Provider Obstetrics & Gynecology; Visit Provider Obstetrics & Gynecology
DX: O46.92 Antepartum hemorrhage, unspecified, second trimester (principal); Z65.9 Problem related to unspecified psychosocial circumstances; E28.2 Polycystic ovarian syndrome; O99.012 Anemia complicating pregnancy, second trimester; D64.9 Anemia, unspecified; O99.282 Endocrine, nutritional and metabolic diseases complicating pregnancy, second trimester; Z79.84 Long term (current) use of oral hypoglycemic drugs; Z3A.22 22 weeks gestation of pregnancy
CPT/HCPCS: 36415; 59025; 59050; 76815; 76817; 81001; 85025; 85027; 85384; 85610; 85730; 86850; 86900; 86901; 87077; 87086; 87088; 87186; 99218; A4216; G0378

== ENCOUNTER → 2021-03-16 10:07 | Outpatient (CLI) | payer MEDICAID, SELFPAY ==
[2021-03-16 11:29] LABS: Absolute Neutrophil Count 6.3 X10^3/uL (2.0-7.7); Basophil# 0.02 X10^3/uL; Basophil% 0.2 % (0-1); Eosinophil# 0.06 X10^3/uL; Eosinophils% 0.7 % (0-5); Hemoglobin 10.1 g/dL (12.0-15.0); Lymphocyte % 18.7 % (19-41); Mean Corp Hgb Conc 30.6 g/dL (32-36); Mean Corpuscular Hgb 23.5 pg (27.0-32.0); Mean Corpuscular Volume 76.7 fL (81-99); Mean Platelet Vol. 10.7 fl (6.2-12.0); Monocyte% 4.7 % (0-10); NRBC Flagged by Analyzer 0 % (0-5); Neutrophil # 6.32 X10^3/uL (2.7-7.7); Neutrophil % 74.1 % (47-70); Platelet Count 213 K/mm3 (150-450); RBC Distribution Width CV 15.9 % (11.6-14.6); RBC Distribution Width SD 43.9 fl (35.1-43.9); White Blood Count 8.5 K/mm3 (4.4-11.0)
[2021-03-16 11:51] LABS: Glucose Challenge Gest 1H 50g 111 mg/dL (70-140)
== END ==
PROVIDERS: PCP Physician Assistant; Referring Provider Obstetrics & Gynecology; Visit Provider Obstetrics & Gynecology
DX: O09.90 Supervision of high risk pregnancy, unspecified, unspecified trimester (principal); Z3A.00 Weeks of gestation of pregnancy not specified
CPT/HCPCS: 36415; 82950; 85025

== ENCOUNTER 2021-03-30 11:20 | Outpatient (CLI) | payer MEDICAID, SELFPAY ==
[2021-03-30] VITALS (17 sets, daily range): BP systolic 129–158; BP diastolic 62–89; PULSE 82–107; TEMP 36.2; O2SAT 97; BMI 39.3
[2021-03-30 12:18] LABS: Hematocrit 33.4 % (37-47); Hemoglobin 10.2 g/dL (12.0-15.0); Mean Corp Hgb Conc 30.5 g/dL (32-36); Mean Corpuscular Hgb 23.2 pg (27.0-32.0); Mean Corpuscular Volume 75.9 fL (81-99); Mean Platelet Vol. 11.1 fl (6.2-12.0); Platelet Count 243 K/mm3 (150-450); RBC Distribution Width CV 15.8 % (11.6-14.6); RBC Distribution Width SD 43.1 fl (35.1-43.9); White Blood Count 9.9 K/mm3 (4.4-11.0)
[2021-03-30 12:46] LABS: AST(SGOT) 10 U/L (15-37); Alanine Aminotransfer ALT/SGPT 14 U/L (13-56); Creatinine, Serum 0.72 mg/dL (0.55-1.02); EST Glomerular Filtration Rate 104 mL/min (>60); Est Glom Filt Rate - Afr Amer 126 mL/min (>60); Estimated Creatinine Clearance 102.25 ml/min; Uric Acid 4.9 mg/dL (2.6-6.0)
[2021-03-30 13:15] LABS: Protein, Urine (Random) 56.6 mg/dL (<11.9); Protein:Creat Ratio 460 mg/g CRE (0-200)
[2021-03-30] MEDS: NIFEdipine 30 MG Tablet PO (14:09)
[2021-03-30] MEDS: Betamethasone/Betamethasone 30 MG/5 ML Vial 12 MG IM (14:10)
--- NOTE | 2021-03-30 14:33 | OB.TRI.PN_ITS ---
Progress Notes Progress Note: Patient presents for triage evaluation secondary to elevated bp FHT: 140 Moderate variability reactive no decelerations category I tracing [place]: no regular Contractions Assessment and plan: preeclampsia Reactive NST, diagnosed with proteinuria, reassuring maternal and status patient discharged to home to follow-up as scheduled. See problem list details for additional plan information. Laboratory Studies: Laboratory Tests 03/30/21 03/30/21 03/30/21 Range/Units 12:30 12:00 12:00 WBC 9.9 (4.4-11.0) K/mm3 RBC 4.40 (4.2-5.4) M/mm3 Hgb 10.2 L (12.0-15.0) g/dL Hct 33.4 L (37-47) % MCV 75.9 L (81-99) fL MCH 23.2 L (27.0-32.0) pg MCHC 30.5 L (32-36) g/dL RDW Std Deviation 43.1 (35.1-43.9) fl RDW Coeff of Marlen 15.8 H (11.6-14.6) % Plt Count 243 (150-450) K/mm3 MPV 11.1 (6.2-12.0) fl Creatinine 0.72 (0.55-1.02) mg/dL Estim Creat Clear Calc 102.25 ml/min Est GFR (MDRD) Af Amer 126 (>60) mL/min Est GFR (MDRD) Non-Af 104 (>60) mL/min Uric Acid 4.9 (2.6-6.0) mg/dL AST 10 L (15-37) U/L ALT 14 (13-56) U/L U Random Total Protein 56.6 H (<11.9) mg/dL Urine Creatinine 123.00 (NO RANGE EST.) mg/dL Protein/Creatinin Ratio 460 H (0-200) mg/g CRE Charges/Coding Procedures Urinary/Genital 52xxx-59xxx: 31991-46 non-stress test Interp Assessment & Plan (1) Pre-eclampsia, mild to moderate, third trimester: COMMENT: 03/30 started on procardia, given steroids. labs nl except proteinuria. plan 2x weekly nsts, weekly rom, growth us q 4 weeks, weekly labs, deliver at 37.
== END 2021-03-30 14:45 | disposition home or self-care (01) ==
LOC: WPOUT 11:27 → WP 11:28
PROVIDERS: PCP Physician Assistant; Visit Provider Obstetrics & Gynecology
DX: O14.03 Mild to moderate pre-eclampsia, third trimester (principal); Z3A.00 Weeks of gestation of pregnancy not specified
CPT/HCPCS: 36415; 59025; 59050; 82565; 82570; 84156; 84450; 84460; 84550; 85027; 99218; G0378; J0702

== ENCOUNTER 2021-04-02 13:10 | Outpatient (CLI) | payer MEDICAID, SELFPAY ==
[2021-04-02] VITALS (13 sets, daily range): BP systolic 132–151; BP diastolic 60–79; PULSE 74–98; TEMP 36.3; O2SAT 98; BMI 40.1
[2021-04-02] MEDS: 0.9% Saline Lock 10 ML Syringe IV (13:45)
[2021-04-02 14:01] LABS: Hematocrit 31.8 % (37-47); Mean Corp Hgb Conc 31.4 g/dL (32-36); Mean Corpuscular Hgb 23.8 pg (27.0-32.0); Mean Corpuscular Volume 75.7 fL (81-99); Mean Platelet Vol. 10.5 fl (6.2-12.0); Platelet Count 233 K/mm3 (150-450); RBC Distribution Width CV 16.1 % (11.6-14.6); RBC Distribution Width SD 43.8 fl (35.1-43.9); White Blood Count 10.7 K/mm3 (4.4-11.0)
--- NOTE | 2021-04-02 14:18 | US_ITS ---
STUDY: SECOND AND THIRD TRIMESTER OBSTETRICAL ULTRASOUND - LIMITED REASON FOR EXAM: Female, 25 years old GROWTH LMP: PRIOR ULTRASOUND: 02/02/2021 TECHNIQUE: Transabdominal TECHNICAL QUALITY: Adequate. FINDINGS: There is a single intrauterine fetus. The fetus is in a cephalic presentation. There is demonstrated cardiac activity with a heart rate of 143 bpm. There is a normal amniotic fluid volume. The largest amniotic fluid pocket measures 5.56 cm. The amniotic fluid index (LUIS MIGUEL) is 15.17 cm. The placenta is anterior. There is a 2. A by 2.7 x 1.3 cm fluid focus within the placenta which may reflect a placental [place]. The cervix measures 4.1 cm in length. BIOMETRY: BPD: 7.49 cm: 30 weeks, 0 days HC: 28.49 cm: 31 weeks, 2 days AC: 26.17 cm: 30 weeks, 2 days FL: 5.38 cm: 28 weeks, 3 days age by prior US: 22 weeks, 0 days. NEETU by prior US: 06/08/2021. age by current US: 30 weeks, 1 days. NEETU by current US: 06/10/2021. Estimated weight: 1454 grams, +/- 218 grams, 11.94 percentile. US/OB Limited With Biometrics IMPRESSION: Single intrauterine with estimated gestational age by ultrasound of 30 weeks and 1 day and an NEETU of 06/10/2021. Electronically Signed: Abby Huerta MD at 20:41 EST Tel , Service support ,
[2021-04-02 14:21] LABS: Protein, Urine (Random) 36.8 mg/dL (<11.9); Protein:Creat Ratio 461 mg/g CRE (0-200)
[2021-04-02 14:24] LABS: AST(SGOT) 15 U/L (15-37); Alanine Aminotransfer ALT/SGPT 16 U/L (13-56); Creatinine, Serum 0.63 mg/dL (0.55-1.02); EST Glomerular Filtration Rate 120 mL/min (>60); Est Glom Filt Rate - Afr Amer 145 mL/min (>60); Uric Acid 4.3 mg/dL (2.6-6.0)
[2021-04-02] MEDS: Acetaminophen 500 MG Tablet 1000 MG PO (15:02)
--- NOTE | 2021-04-02 17:10 | OB.TRI.HP_ITS ---
HPI - General HPI Narrative PARMJIT LUGO, is a 25 F who presents with elevate dbps at home and intermittent headache. she hasn't taken anything for the headache yet. bp elevated at home and now upon evaluation are 130s/70s. she denies any vb lof good fm no regular ctx. Maternal Data Information NEETU Calculator Estimated Delivery Date Method Current WG Current Estimate 06/05/21 Ultrasound #1 30w 6d Other Estimates 05/28/21 LMP (Uncertain) 32w 0d PFSH PFSH Medical History Anemia PCOS (polycystic ovarian syndrome) Pre-diabetes Home Medications sertraline 50 mg tablet 75 mg PO DAILY #45 tab 01/05/21 [Rx Last Taken 04/02/21 17:02] miscellaneous medical supply #1 ea 03/30/21 [Rx Last Taken Unknown] nifedipine 30 mg tablet,extended release 24 hr 30 mg PO DAILY #30 tab 03/30/21 [Rx Last Taken 04/02/21 08:00] ferrous sulfate [iron] 325 mg PO BID 04/02/21 [History Last Taken 04/01/21 20:00] [id number] [] tab PO 04/02/21 [History Last Taken 04/02/21 08:00] Allergy/AdvReac Type Severity Reaction Status Date / Time acetaminophen [From NyQuil] Allergy Mild hives Verified 03/30/21 10:51 dextromethorphan Allergy Mild hives Verified 03/30/21 10:51 [From NyQuil] doxylamine [From NyQuil] Allergy Mild hives Verified 03/30/21 10:51 pseudoephedrine [From NyQuil] Allergy Mild hives Verified 03/30/21 10:51 Family History Grandmother Breast cancer Mother Hypertension Surgical History H/O dilation and curettage (~01/14/17) Social History Smoking Status: Never smoker alcohol intake: never substance use type: does not use caffeine: No what type of physical activity do you participate in: walking frequency: 5-6 times per week seatbelt use: always do you feel safe at home: Yes additional social history: -Oscar Branyesika Patient is self employed at a day care History 1 Elective abortions Hx Para Spontaneous abortions Hx # Term Pregnancies Ectopic pregnancies Hx # Pregnancies Multiple births # of living children Visit Details Expected Delivery Route/Plan Labor Preferences- CB/BF classes: [] labor support person: Oscar labor intervention preferences: [] pain management options preferred: [] cut cord/dad catch: [] : [] PP control planned: [] discussed possible routes of delivery and associated risks: [] special requests: [] Plans Covid status: positive, counseled regarding risk of covid in vs vaccination and declined vaccination Flu vaccine: declined. Tdap vaccine: deciding Rhogam: [] LARC form signed: 03/16/2021 Problem list reviewed and updated with the most current plan of care details and appropriate orders placed. Relevant counseling for the gestational age provided. Continue routine care and follow up unless otherwise noted in visit notes/problem list details OB Flowsheet Initial Weight: Not Recorded Date -?-?-?-?-?-?-?-?-?-?-?-?- EGA Weight BP Urine Prot -?-?-?-?-?-?-?-?-?-?-?-?- Glucose FHR FuHt Pres Dilation -?-?-?-?-?-?-?-?-?-?-?-?- Effaced St Visit Note 12/04/20 -?-?-?-?-?-?-?-?-?-?-?-?- 13w 6d 224 lb 8 oz 138/78 -?-?-?-?-?-?-?-?-?-?-?-?- 160 -?-?-?-?-?-?-?-?-?-?-?-?- GP - dated by US at 13/0 01/05/21 -?-?-?-?-?-?-?-?-?-?-?-?- 18w 3d 225 lb 4 oz 124/78 Trac e -?-?-?-?-?-?-?-?-?-?-?-?- Negative 169 -?-?-?-?-?-?-?-?-?-?-?-?- GP - no cramping or bleeding. Anatomy scan ordered. NOB labs nl. 02/01/21 -?-?-?-?-?-?-?-?-?-?-?-?- 22w 2d 222 lb 4 oz 118/76 Trac e -?-?-?-?-?-?-?-?-?-?-?-?- Negative 150 23 -?-?-?-?-?-?-?-?-?-?-?-?- GP - no ctx, LOF , VB, DFM. Anatomy nl. GCT next visit. 02/02/21 -?-?-?-?-?-?-?-?-?-?-?-?- 22w 4d 214 lb 4 oz 133/62 129/66 143/63 132/60 123/58 129/66 132/67 122/65 120/69 126/72 100 mg/dl (Negative) H -?-?-?-?-?-?-?-?-?-?-?-?- -?-?-?-?-?-?-?-?-?-?-?-?- 03/02/21 -?-?-?-?-?-?-?-?-?-?-?-?- 26w 3d 225 lb 124/72 Negative -?-?-?-?-?-?-?-?-?-?-?-?- Negative 150 -?-?-?-?-?-?-?-?-?-?-?-?- Sm- no vb lof go od fm no reuglar ctx 03/16/21 -?-?-?-?-?-?-?-?-?-?-?-?- 28w 3d 230 lb 6 oz 136/78 Nega tive -?-?-?-?-?-?-?-?-?-?-?-?- Negative 147 28 -?-?-?-?-?-?-?-?-?-?-?-?- JV- deciding on tdap. Glucola today. No complaints. 03/30/21 -?-?-?-?-?-?-?-?-?-?-?-?- 30w 3d 232 lb 8 oz 140/82 Trac e -?-?-?-?-?-?-?-?-?-?-?-?- Negative -?-?-?-?-?-?-?-?-?-?-?-?- SM- no vb lof go od fm no regular ctx SM- elevated bp in office wi ll send to l and d for evaluation, fu in 1 week if WNL 03/30/21 -?-?-?-?-?-?-?-?-?-?-?-?- 30w 3d 229 lb 4.492 oz 149/ 71 149/71 151/72 146/67 158/73 142/76 133/68 129/63 137/76 139/62 134/63 141/67 149/73 141/67 144/89 142/66 -?-?-?-?-?-?-?-?-?-?-?-?- -?-?-?-?-?-?-?-?-?-?-?-?- 04/02/21 -?-?-?-?-?-?-?-?-?-?-?-?- 30w 6d 233 lb 12.8 oz 132/7 0 142/79 148/73 151/72 137/60 138/63 139/70 132/64 139/73 -?-?-?-?-?-?-?-?-?-?-?-?- 140 -?-?-?-?-?-?-?-?-?-?-?-?- traige on l and d Physical Exam Const alert, oriented x3 and no apparent distress HEENT Head and Scalp: normocephalic and atraumatic Eyes EOMs intact bilaterally Neck full ROM and no lymphadenopathy Chest inspection of chest normal Resp normal respiratory effort GI GI Narrative: gravid, abdomen nontender, AGA Neuro no focal motor deficits Motor Exam: clonus absent NST FHR Rate Baby A Baseline: 140 Variability:: Moderate Accelerations:: 15 x 15 Decelerations:: None NST Reactive:: Yes FHR Category:: Category I Uterine Activity:: no regular Assessment & Plan (1) Anemia affecting : COMMENT: iron added (2) Pre-eclampsia, mild to moderate, third trimester: COMMENT: eval in triage 04/02 serial labs, stable. 03/30 started on procardia, given steroids. labs nl except proteinuria. plan 2x weekly nsts, weekly rom, growth us q 4 weeks, weekly labs, deliver at 37. (3) COVID-19 affecting , antepartum: COMMENT: in 2tm. 81 mg asa daily and growth us q4 (4) Vaginal bleeding during : COMMENT: Admitted with bleeding 02/02. MFM US 02/08 Small subchorionic bleed noted over internal os. 03/08 US nl, repeat growth US 4 wks (5) Other social stressor: COMMENT: Guardians for 2 yo son Barney - have custody hearing in march and hoping to get custody (6) Anemia: COMMENT: iron supplement, if doesn't improve recommend IV iron, per MH recheck in 4 wks due to increase but still low (7) Supervision of high risk , antepartum: COMMENT: PRR NEETU:06/05/21 boy Dominic PC:Barney(Adopting) Spouse:Oscar (8) : QUALIFIERS: Weeks of gestation: 30 weeks Qualified Code(s): Z3A.30 - 30 weeks gestation of COMMENT: Declines ntd, NIPT and carrier, nl anatomy Charges/Coding Procedures Urinary/Genital 52xxx-59xxx: 37593-91 non-stress test Interp Multi Select Codes Visit Charges Office Visit/Consults: 69621 OV L3 Est
[2021-04-02 17:21] LABS: Hematocrit 33.1 % (37-47); Hemoglobin 10.5 g/dL (12.0-15.0); Mean Corp Hgb Conc 31.7 g/dL (32-36); Mean Corpuscular Hgb 24.1 pg (27.0-32.0); Mean Corpuscular Volume 75.9 fL (81-99); Mean Platelet Vol. 10.7 fl (6.2-12.0); Platelet Count 260 K/mm3 (150-450); RBC Distribution Width SD 43.5 fl (35.1-43.9); Red Blood Count 4.36 M/mm3 (4.2-5.4); White Blood Count 12.6 K/mm3 (4.4-11.0)
[2021-04-02 17:41] LABS: AST(SGOT) 13 U/L (15-37); Alanine Aminotransfer ALT/SGPT 15 U/L (13-56); Creatinine, Serum 0.58 mg/dL (0.55-1.02); EST Glomerular Filtration Rate 132 mL/min (>60); Est Glom Filt Rate - Afr Amer 160 mL/min (>60); Estimated Creatinine Clearance 126.93 ml/min; Uric Acid 4.1 mg/dL (2.6-6.0)
== END 2021-04-02 20:40 | disposition home or self-care (01) ==
LOC: WPOUT 13:18 → WP 13:19
PROVIDERS: PCP Physician Assistant; Referring Provider Obstetrics & Gynecology; Visit Provider Obstetrics & Gynecology
DX: O14.03 Mild to moderate pre-eclampsia, third trimester (principal); Z3A.30 30 weeks gestation of pregnancy; O98.513 Other viral diseases complicating pregnancy, third trimester; U07.1 COVID-19; O99.013 Anemia complicating pregnancy, third trimester; D64.9 Anemia, unspecified
CPT/HCPCS: 36415; 59025; 59050; 76816; 82565; 82570; 84156; 84450; 84460; 84550; 85027; 99218; A4216; G0378

== ENCOUNTER → 2021-04-13 11:46 | Outpatient (CLI) | payer MEDICAID, SELFPAY ==
--- NOTE | 2021-04-13 11:48 | US_ITS ---
STUDY: OBSTETRICAL ULTRASOUND - BIOPHYSICAL PROFILE REASON FOR EXAM: Female, 26 years old nonreactive NST LMP: 08/29/2020. PRIOR ULTRASOUND: Comparison is made with prior sonogram dated 04/02/2021. TECHNIQUE: Transabdominal TECHNICAL QUALITY: Adequate. FINDINGS: There is a single intrauterine fetus. The fetus is in a cephalic presentation. There is demonstrated cardiac activity with a heart rate of 143 bpm. There is a normal amniotic fluid volume. The largest amniotic fluid pocket measures 5.7 cm. The amniotic fluid index (LUIS MIGUEL) is 17.9 cm. The placenta is anterior in location and is not low lying. There are Grade 2 placental changes. Age by LMP: 32 weeks, 3 days. NEETU by LMP: 06/05/2021. BIOPHYSICAL PROFILE: Breathing Movements (FBM): 2 Gross Body Movements (GBM): 2 Tone (FT): 2 Amniotic Fluid Volume (AFV): 2 TOTAL SCORE: 8 / 8 Possible nuchal cord. US/Biophysical Prof W/O Non Stres IMPRESSION: Normal biophysical profile of 8/8. Electronically Signed: Vito Navarro MD at 13:27 EST , Service support ,
[2021-04-13 13:06] LABS: Absolute Lymphocyte Count 1.58 X10^3/uL (0.83-4.51); Absolute Neutrophil Count 6.9 X10^3/uL (2.0-7.7); Basophil# 0.02 X10^3/uL; Basophil% 0.2 % (0-1); Eosinophil# 0.05 X10^3/uL; Eosinophils% 0.6 % (0-5); Hematocrit 34.9 % (37-47); Hemoglobin 10.6 g/dL (12.0-15.0); Lymphocyte # 1.58 X10^3/ul (0.83-4.51); Lymphocyte % 17.4 % (19-41); Mean Corp Hgb Conc 30.4 g/dL (32-36); Mean Corpuscular Hgb 23.3 pg (27.0-32.0); Mean Corpuscular Volume 76.9 fL (81-99); Mean Platelet Vol. 10.9 fl (6.2-12.0); Monocyte# 0.49 X10^3/uL; Monocyte% 5.4 % (0-10); NRBC Flagged by Analyzer 0 % (0-5); Neutrophil # 6.87 X10^3/uL (2.7-7.7); Neutrophil % 75.6 % (47-70); Platelet Count 232 K/mm3 (150-450); RBC Distribution Width CV 16.3 % (11.6-14.6); RBC Distribution Width SD 44.6 fl (35.1-43.9); Red Blood Count 4.54 M/mm3 (4.2-5.4); White Blood Count 9.1 K/mm3 (4.4-11.0)
[2021-04-13 13:22] LABS: ALB/GLOB Ratio 0.5 RATIO (0.9-2.4); AST(SGOT) 12 U/L (15-37); Alanine Aminotransfer ALT/SGPT 16 U/L (13-56); Albumin, Serum 2.6 g/dL (3.2-5.0); Alkaline Phosphatase 141 U/L (45-117); Anion Gap 8 (5-15); BUN 8 mg/dL (7-18); BUN/Creat Ratio 14.4 RATIO (10-20); Calcium,Total 9.2 mg/dL (8.5-10.1); Chloride 108 mmol/L (98-107); Creatinine, Serum 0.56 mg/dL (0.55-1.02); EST Glomerular Filtration Rate 139 mL/min (>60); Est Glom Filt Rate - Afr Amer 169 mL/min (>60); Globulin 4.8 g/dL (2.2-4.2); Glucose 79 mg/dL (74-106); Potassium 4.2 mmol/L (3.5-5.1); Protein, Total 7.4 g/dL (6.4-8.2); Protein:Creat Ratio 460 mg/g CRE (0-200); Sodium Level 138 mmol/L (136-145)
== END ==
PROVIDERS: PCP Physician Assistant; Referring Provider Obstetrics & Gynecology; Visit Provider Obstetrics & Gynecology
DX: O14.03 Mild to moderate pre-eclampsia, third trimester (principal); O28.8 Other abnormal findings on antenatal screening of mother; Z3A.32 32 weeks gestation of pregnancy
CPT/HCPCS: 36415; 76819; 80053; 82570; 84156; 85025

== ENCOUNTER → 2021-04-18 15:37 | Outpatient (CLI) | payer MEDICAID, SELFPAY ==
[2021-04-18 16:08] LABS: Absolute Lymphocyte Count 1.66 X10^3/uL (0.83-4.51); Absolute Neutrophil Count 7.5 X10^3/uL (2.0-7.7); Basophil# 0.02 X10^3/uL; Basophil% 0.2 % (0-1); Eosinophil# 0.05 X10^3/uL; Eosinophils% 0.5 % (0-5); Hematocrit 34.6 % (37-47); Hemoglobin 10.9 g/dL (12.0-15.0); Lymphocyte # 1.66 X10^3/ul (0.83-4.51); Mean Corp Hgb Conc 31.5 g/dL (32-36); Mean Corpuscular Volume 76.2 fL (81-99); Mean Platelet Vol. 10.8 fl (6.2-12.0); Monocyte# 0.56 X10^3/uL; Monocyte% 5.7 % (0-10); NRBC Flagged by Analyzer 0 % (0-5); Neutrophil # 7.45 X10^3/uL (2.7-7.7); Neutrophil % 76.2 % (47-70); Platelet Count 212 K/mm3 (150-450); RBC Distribution Width CV 16.6 % (11.6-14.6); RBC Distribution Width SD 44.4 fl (35.1-43.9); Red Blood Count 4.54 M/mm3 (4.2-5.4); White Blood Count 9.8 K/mm3 (4.4-11.0)
[2021-04-18 16:22] LABS: Protein, Urine (Random) 56.6 mg/dL (<11.9); Protein:Creat Ratio 442 mg/g CRE (0-200)
[2021-04-18 16:23] LABS: ALB/GLOB Ratio 0.5 RATIO (0.9-2.4); AST(SGOT) 15 U/L (15-37); Alanine Aminotransfer ALT/SGPT 14 U/L (13-56); Albumin, Serum 2.5 g/dL (3.2-5.0); Alkaline Phosphatase 147 U/L (45-117); Anion Gap 7 (5-15); BUN 10 mg/dL (7-18); BUN/Creat Ratio 17.1 RATIO (10-20); Calcium,Total 9.5 mg/dL (8.5-10.1); Chloride 110 mmol/L (98-107); Creatinine, Serum 0.59 mg/dL (0.55-1.02); EST Glomerular Filtration Rate 131 mL/min (>60); Est Glom Filt Rate - Afr Amer 158 mL/min (>60); Globulin 4.8 g/dL (2.2-4.2); Glucose 92 mg/dL (74-106); Protein, Total 7.3 g/dL (6.4-8.2); Sodium Level 140 mmol/L (136-145)
== END ==
PROVIDERS: Nurse Practitioner Women's Health; PCP Physician Assistant; Referring Provider Obstetrics & Gynecology; Visit Provider Obstetrics & Gynecology
DX: O14.03 Mild to moderate pre-eclampsia, third trimester (principal); Z3A.00 Weeks of gestation of pregnancy not specified
CPT/HCPCS: 36415; 80053; 82570; 84156; 85025

== ENCOUNTER → 2021-04-23 11:27 | Outpatient (CLI) | payer MEDICAID, SELFPAY ==
[2021-04-23 11:43] LABS: Absolute Lymphocyte Count 1.72 X10^3/uL (0.83-4.51); Absolute Neutrophil Count 7.6 X10^3/uL (2.0-7.7); Basophil# 0.02 X10^3/uL; Basophil% 0.2 % (0-1); Eosinophil# 0.06 X10^3/uL; Eosinophils% 0.6 % (0-5); Hematocrit 34.7 % (37-47); Hemoglobin 11.1 g/dL (12.0-15.0); Lymphocyte # 1.72 X10^3/ul (0.83-4.51); Lymphocyte % 17.3 % (19-41); Mean Corpuscular Volume 75.1 fL (81-99); Mean Platelet Vol. 10.8 fl (6.2-12.0); Monocyte# 0.49 X10^3/uL; Monocyte% 4.9 % (0-10); NRBC Flagged by Analyzer 0 % (0-5); Neutrophil # 7.62 X10^3/uL (2.7-7.7); Neutrophil % 76.6 % (47-70); Platelet Count 212 K/mm3 (150-450); RBC Distribution Width CV 16.6 % (11.6-14.6); RBC Distribution Width SD 43.9 fl (35.1-43.9); Red Blood Count 4.62 M/mm3 (4.2-5.4)
[2021-04-23 12:01] LABS: ALB/GLOB Ratio 0.5 RATIO (0.9-2.4); AST(SGOT) 13 U/L (15-37); Alanine Aminotransfer ALT/SGPT 15 U/L (13-56); Albumin, Serum 2.4 g/dL (3.2-5.0); Alkaline Phosphatase 152 U/L (45-117); Anion Gap 7 (5-15); BUN 9 mg/dL (7-18); BUN/Creat Ratio 14.9 RATIO (10-20); Calcium,Total 9.6 mg/dL (8.5-10.1); Chloride 108 mmol/L (98-107); EST Glomerular Filtration Rate 127 mL/min (>60); Est Glom Filt Rate - Afr Amer 153 mL/min (>60); Globulin 5.1 g/dL (2.2-4.2); Glucose 114 mg/dL (74-106); Potassium 4.1 mmol/L (3.5-5.1); Protein, Total 7.5 g/dL (6.4-8.2); Sodium Level 138 mmol/L (136-145)
[2021-04-23 13:33] LABS: Protein, Urine (Random) 74.6 mg/dL (<11.9); Protein:Creat Ratio 684 mg/g CRE (0-200)
== END ==
PROVIDERS: PCP Physician Assistant; Referring Provider Obstetrics & Gynecology; Visit Provider Obstetrics & Gynecology
DX: O14.03 Mild to moderate pre-eclampsia, third trimester (principal); Z3A.00 Weeks of gestation of pregnancy not specified
CPT/HCPCS: 36415; 80053; 82570; 84156; 85025

== ENCOUNTER → 2021-04-26 08:28 | Outpatient (CLI) | payer MEDICAID, SELFPAY ==
--- NOTE | 2021-04-26 08:30 | US_ITS ---
STUDY: SECOND AND THIRD TRIMESTER OBSTETRICAL ULTRASOUND - LIMITED REASON FOR EXAM: Female, 26 years old LUIS MIGUEL ONLY LMP: 08/29/2020 PRIOR ULTRASOUND: 04/13/2021 TECHNIQUE: Transabdominal TECHNICAL QUALITY: Adequate. FINDINGS: There is a single intrauterine fetus. The fetus is in a cephalic presentation. There is demonstrated cardiac activity with a heart rate of 132 bpm. There is a normal amniotic fluid volume. The largest amniotic fluid pocket measures 5.2 cm. The amniotic fluid index (LUIS MIGUEL) is 14.6 cm. The placenta is anterior in location and is not low lying. There are Grade 2 placental changes. The cervix measures cm in length. Age by LMP: 34 weeks, 2 days. NEETU by LMP: 06/05/2021. US/OB Limited (No Biometrics) IMPRESSION: Living of 34 weeks 2 days as described above. Amniotic fluid index of 14.6 cm. Electronically Signed: Leonardo Toure MD at 10:12 EST Tel , Service support ,
== END ==
PROVIDERS: PCP Physician Assistant; Referring Provider Obstetrics & Gynecology; Visit Provider Obstetrics & Gynecology
DX: O14.03 Mild to moderate pre-eclampsia, third trimester (principal); Z3A.00 Weeks of gestation of pregnancy not specified
CPT/HCPCS: 76815

== ENCOUNTER 2021-05-01 12:45 | Inpatient (IN) | payer MEDICAID, SELFPAY ==
[2020-12-04 13:45] VITALS: BMI 38.5
[2021-05-01] VITALS (66 sets, daily range): BP systolic 115–172; BP diastolic 58–98; PULSE 69–127; RESP 16–20; TEMP 36.3–37.1; O2SAT 80–100; BMI 42.5
[2021-05-01 12:03] LABS: Hemoglobin 10.6 g/dL (12.0-15.0); Mean Corp Hgb Conc 31.2 g/dL (32-36); Mean Corpuscular Hgb 23.6 pg (27.0-32.0); Mean Corpuscular Volume 75.6 fL (81-99); Mean Platelet Vol. 11.2 fl (6.2-12.0); Platelet Count 183 K/mm3 (150-450); RBC Distribution Width CV 16.5 % (11.6-14.6); RBC Distribution Width SD 44.5 fl (35.1-43.9); White Blood Count 9.4 K/mm3 (4.4-11.0)
--- NOTE | 2021-05-01 12:06 | HP.PCM.OB_ITS ---
HPI - General HPI Narrative PARMJIT LUGO, is a 26 F who presents withseverely elevate dbps and increasing urine protein, severe preeclampsia. she has had a complicated by preeclampsia diagnosed at 30 weeks and also vaginal bleeding in earlier . she denies any ctx or vb or lof. good fm. Maternal Data Information NEETU Calculator Estimated Delivery Date Method Current WG Current Estimate 06/05/21 Ultrasound #1 35w 0d Other Estimates 05/28/21 LMP (Uncertain) 36w 1d PFSH PFSH Medical History Anemia PCOS (polycystic ovarian syndrome) Pre-diabetes Home Medications sertraline 50 mg tablet 75 mg PO DAILY #45 tab 01/05/21 [Rx Last Taken 05/01/21 09:00] miscellaneous medical supply #1 ea 03/30/21 [Rx Last Taken Unknown] nifedipine 30 mg tablet,extended release 24 hr 30 mg PO DAILY #30 tab 03/30/21 [Rx Last Taken 05/01/21 09:00] ferrous sulfate [iron] 325 mg PO BID 04/02/21 [History Last Taken 1 Day Ago ~04/30/21] vchtadat-use-Nh-FA [] 2 tab PO DAILY 04/02/21 [History Last Taken 05/01/21 09:00] aspirin 81 mg PO DAILY 05/01/21 [History Last Taken 1 Day Ago ~04/30/21] Allergy/AdvReac Type Severity Reaction Status Date / Time acetaminophen [From NyQuil] Allergy Mild hives Verified 05/01/21 10:44 dextromethorphan Allergy Mild hives Verified 05/01/21 10:44 [From NyQuil] doxylamine [From NyQuil] Allergy Mild hives Verified 05/01/21 10:44 pseudoephedrine [From NyQuil] Allergy Mild hives Verified 05/01/21 10:44 Family History Grandmother Breast cancer Mother Hypertension Surgical History H/O dilation and curettage (~01/14/17) Social History Smoking Status: Never smoker alcohol intake: never substance use type: does not use caffeine: No what type of physical activity do you participate in: walking frequency: 5-6 times per week seatbelt use: always do you feel safe at home: Yes additional social history: -Oscar- [employer] Patient is self employed at a day care History 1 Elective abortions Hx Para Spontaneous abortions Hx # Term Pregnancies Ectopic pregnancies Hx # Pregnancies Multiple births # of living children Visit Details Expected Delivery Route/Plan Labor Preferences- labor support person: Oscar labor intervention preferences: [] pain management options preferred: [] cut cord/dad catch: [] : [] PP control planned: [] discussed possible routes of delivery and associated risks: [] special requests: [] Plans Covid status: positive, counseled regarding risk of covid in vs vaccination and declined vaccination Flu vaccine: declined. Tdap vaccine: deciding Rhogam: na LARC form signed: 03/16/2021 movement and labor precautions reviewed. Problem list reviewed and updated with the most current plan of care details and appropriate orders placed. Relevant counseling for the gestational age provided. Continue routine care and follow up unless otherwise noted in visit notes/problem list details OB Flowsheet Initial Weight: 224 lb Date -?-?-?-?-?-?-?-?-?-?-?-?- EGA Weight BP Urine Prot -?-?-?-?-?-?-?-?-?-?-?-?- Glucose FHR FuHt Pres Dilation -?-?-?-?-?-?--?-?-?-?-?-?- Effaced St Visit Note 12/04/20 -?-?-?-?-?-?-?-?-?-?-?-?- 13w 6d 224 lb 8 oz (+8 oz) 138/78 -?-?-?-?-?-?-?-?-?-?-?-?- 160 -?-?-?-?-?-?-?-?-?-?-?-?- GP - dated by US at 13/0 01/05/21 -?-?--?-?-?-?-?-?-?-?-?-?- 18w 3d 225 lb 4 oz (+1 lb 4 oz) 124/78 Trace -?-?-?-?-?-?-?-?-?-?-?-?- Negative 169 -?-?-?-?-?-?-?-?-?-?-?-?- GP - no cramping or bleeding. Anatomy scan ordered. NOB labs nl. 02/01/21 -?-?-?-?-?-?-?-?-?-?-?-?- 22w 2d 222 lb 4 oz (-1 lb 12 oz) 118/76 Trace -?-?-?-?-?-?-?-?-?-?-?-?- Negative 150 23 -?-?-?-?-?-?-?-?-?-?-?-?- GP - no ctx, LOF , VB, DFM. Anatomy nl. GCT next visit. 02/02/21 -?-?-?-?-?-?-?-?-?-?-?-?- 22w 4d 214 lb 4 oz (-9 lb 12 oz) 133/62 129/66 143/63 132/60 123/58 129/66 132/67 122/65 120/69 126/72 100 mg/dl (Negative) H -?-?-?-?-?-?-?-?-?-?-?-?- -?-?-?-?-?-?-?-?-?-?-?-?- 03/02/21 -?-?-?-?-?-?-?-?-?-?-?-?- 26w 3d 225 lb (+16 oz) 124/72 Negative -?-?-?-?-?-?-?-?-?-?-?-?- Negative 150 -?-?-?-?-?-?-?-?-?-?-?-?- Sm- no vb lof go od fm no reuglar ctx 03/16/21 -?-?-?-?-?-?-?-?-?-?-?-?- 28w 3d 230 lb 6 oz (+6 lb 6 oz) 136/78 Negative -?-?-?-?-?-?-?-?-?-?-?-?- Negative 147 28 -?--?-?-?-?-?-?-?-?-?-?-?- JV- deciding on tdap. Glucola today. No complaints. 03/30/21 -?-?-?-?-?-?-?-?-?-?-?-?- 30w 3d 232 lb 8 oz (+8 lb 8 oz) 140/82 Trace -?-?-?-?-?-?-?-?-?-?-?-?- Negative -?-?-?-?-?-?-?-?-?-?-?-?- SM- no vb lof go od fm no regular ctx SM- elevated bp in office wi ll send to l and d for evaluation, fu in 1 week if WNL 03/30/21 -?-?-?-?-?-?-?-?-?-?-?-?- 30w 3d 229 lb 4.492 oz (+5 lb 4.492 oz) 149/71 149/71 151/72 146/67 158/73 142/76 133/68 129/63 137/76 139/62 134/63 141/67 149/73 141/67 144/89 142/66 -?-?-?-?-?-?-?-?-?-?-?-?- -?-?-?-?-?-?-?-?-?-?-?-?- 04/02/21 -?-?-?-?-?-?-?-?-?-?-?-?- 30w 6d 233 lb 12.8 oz (+9 lb 12.8 oz) 132/70 142/79 148/73 151/72 137/60 138/63 139/70 132/64 139/73 146/70 148/70 -?-?-?-?-?-?-?-?-?-?-?-?- 140 -?-?-?-?-?-?-?-?-?-?-?-?- traige on l and d 04/05/21 -?-?-?-?-?-?-?-?-?-?-?-?- 31w 2d 233 lb 2 oz (+9 lb 2 oz) 128/78 Negative -?-?-?-?-?-?-?-?-?-?-?-?- Negative 150 -?-?-?-?-?-?-?-?-?-?-?-?- JV- reactive nst . no complaints of headaches, epigastric pain, contractions, visual changes 04/10/21 -?-?-?-?-?-?-?-?-?-?-?-?- 32w 0d 235 lb (+11 lb) 120/78 Negative -?-?-?-?-?-?-?-?-?-?-?-?- Negative 140 -?-?-?-?-?-?-?-?-?-?-?-?- -NST only reac tive 04/13/21 -?-?-?-?-?-?-?-?-?-?-?-?- 32w 3d 236 lb 8 oz (+12 lb 8 oz) 118/74 Trace -?-?-?-?-?-?-?-?-?-?-?-?- Negative 140 -?-?-?-?-?-?-?-?-?-?-?-?- SM- no vb lof go od fm no regular ctx. no garcia bv 04/16/21 -?-?-?-?-?-?-?-?-?-?-?-?- 32w 6d 239 lb 8 oz (+15 lb 8 oz) 128/84 Negative -?-?-?-?-?-?-?-?-?-?-?-?- Negative 150 -?-?-?-?-?-?-?-?-?-?-?-?- -NST only reac tive 04/18/21 -?-?-?-?-?-?-?-?-?-?-?-?- 33w 1d 241 lb 6 oz (+17 lb 6 oz) 150/98 Negative -?-?-?-?-?-?-?-?-?-?-?-?- Negative 140 -?-?-?-?-?-?-?-?-?-?-?-?- JV- NST reactive . RPT BP 130/86, asymptomatic for PIH labs today. 04/23/21 -?-?-?-?-?-?-?-?-?-?-?-?- 33w 6d 244 lb (+20 lb) 140/88 1+ -?-?-?-?-?-?-?-?-?-?-?-?- Negative 140 -?-?-?-?-?-?-?-?-?-?-?-?- SM- no garcia bv bps WNL at home. labs WNL today except proteinuria 04/26/21 -?-?-?-?-?-?-?-?-?-?-?-?- 34w 2d 245 lb 4 oz (+21 lb 4 oz) 148/84 1+ -?-?-?-?-?-?-?-?-?-?-?-?- Negative 140 -?-?-?-?-?-?-?-?-?-?-?-?- SM- home bps WNL , labs stable this week, cont exp management reviewedprecautions 05/01/21 -?-?-?-?-?-?-?-?-?-?-?-?- 35w 0d 249 lb (+25 lb) 140/100 -?-?-?-?-?-?-?-?-?-?-?-?- -?-?-?-?-?-?-?-?-?-?-?-?- 05/01/21 -?-?-?-?-?-?-?-?-?-?-?-?- 35w 0d 247 lb 9.6 oz (+23 lb 9.6 oz) 115/58 171/88 159/88 164/88 166/98 159/94 165/89 172/97 -?-?-?-?-?-?-?-?-?-?-?-?- -?-?-?-?-?-?-?-?-?-?-?-?- NST FHR Rate Baby A Baseline: 140 Variability:: Moderate Accelerations:: 15 x 15 Decelerations:: None NST Reactive:: Yes FHR Category:: Category I Uterine Activity:: irregular ROS Constitutional Constitutional: Reports systems reviewed and no addt'l complaints, except as documented Eyes Eyes: Denies change in vision ENT HEENT: Reports systems reviewed and no addt'l complaints, except as documented; Denies headache(s) Cardiovascular Cardiovascular: Reports systems reviewed and no addt'l complaints, except as documented; Denies chest pain or dyspnea Respiratory/Chest Respiratory/Chest: Reports systems reviewed and no addt'l complaints, except as documented Gastrointestinal Gastrointestinal: Reports systems reviewed and no addt'l complaints, except as documented; Denies abdominal pain Genitourinary Genitourinary: Reports systems reviewed and no addt'l complaints, except as documented, contractions Details: present (irregular) and movement Details: present; Denies dysuria or genital lesions Musculoskeletal Musculoskeletal: Reports systems reviewed and no addt'l complaints, except as documented Neurologic Neurologic: Reports systems reviewed and no addt'l complaints, except as documented Endocrine Endocrinology: Reports systems reviewed and no addt'l complaints, except as documented Vital Signs Vital Signs Vital Signs: 05/01/21 11:36 05/01/21 11:37 05/01/21 11:54 Temperature 98.0 F Temperature Source Temporal Pulse Rate 85 86 Blood Pressure 115/58 L 171/88 H BP Systolic 115 171 BP Diastolic 58 88 Pulse Ox 99 99 05/01/21 12:05 Temperature Temperature Source Pulse Rate 88 Blood Pressure 159/88 H BP Systolic 159 BP Diastolic 88 Pulse Ox Weight Weight: 247 lb 9.6 oz Body Mass Index (BMI) 42.5 Physical Exam Const alert, oriented x3, no apparent distress and healthy appearing HEENT normocephalic and moist oral mucous membranes Head and Scalp: atraumatic Neck full ROM, no lymphadenopathy, supple and thyroid normal General: trachea midline Lymph Lymphatic: no lymphadenopathy noted Chest inspection of chest normal Resp normal respiratory effort Cardio regular rate GI normal to inspection, nondistended, normoactive bowel sounds, soft to palpation and non-tender Inspection: gravid external exam normal Manual OB Exam: estimated gestational size appropriate, presentation cephalic, dilated 0, effaced 0 and station high Extremity normal to inspection General Extremity: Negative for edema Skin no rashes or lesions noted Neuro no focal motor deficits and deep tendon reflexes 2+ bilaterally Motor Exam: strength 5/5 throughout and clonus absent Psych mental status grossly normal Labs Labs Labs: Blood Type O POSITIVE Antibody Screen NEGATIVE Hct 34.0 % (37-47) L Hgb 10.6 g/dL (12.0-15.0) L Obstetrics US Syphilis Total Ab Non-reactive Rubella IgG Antibody Reactive (Nonreactive) Hep Bs Antigen Non-Reactive (Nonreactive) HIV 1&2 Antibody Non-Reactive (Nonreactive) Glucose 1 Hr 50 gm 111 mg/dL (70-140) Miscellaneous Test Assessment & Plan (1) Pre-eclampsia, severe, antepartum: COMMENT: IOL 35 weeks, iv magnesium sulfate with fluid restriction, iv labetalol for htn protocol. maintenance dose continue. cytotec then pitocin, epi and arom PRN (2) Other social stressor: COMMENT: Guardians for 2 yo son Barney - have custody hearing in march and hoping to get custody (3) COVID-19 affecting , antepartum: COMMENT: in 2tm. 81 mg asa daily and growth us q4 (4) Anemia affecting : QUALIFIERS: Trimester: third trimester Qualified Code(s): O99.013 - Anemia complicating , third trimester COMMENT: iron added (5) Anemia: COMMENT: iron supplement, if doesn't improve recommend IV iron, per recheck in 4 wks due to increase but still low (6) Vaginal bleeding during : COMMENT: Admitted with bleeding 02/02. MFM US 02/08 Small subchorionic bleed noted over internal os. 03/08 US nl, repeat growth US 4 wks (7) Supervision of high risk , antepartum: COMMENT: PRR NEETU:06/05/21 boy Dominic PC:Barney(Adopting) Spouse:Oscar (8) : QUALIFIERS: Weeks of gestation: 35 weeks Qualified Code(s): Z3A. 35 - 35 weeks gestation of COMMENT: Declines ntd, NIPT and carrier, nl anatomy
[2021-05-01] MEDS: Lactated Ringers 1,000 ML 50 ML IV (12:25)
[2021-05-01] MEDS: Magnesium Sulfate 4gm/100mL 4 GM/100 ML IV.SOLN. IV (12:34)
[2021-05-01 12:42] LABS: ALB/GLOB Ratio 0.5 RATIO (0.9-2.4); AST(SGOT) 26 U/L (15-37); Alanine Aminotransfer ALT/SGPT 19 U/L (13-56); Albumin, Serum 2.2 g/dL (3.2-5.0); Alkaline Phosphatase 152 U/L (45-117); Anion Gap 11 (5-15); BUN 8 mg/dL (7-18); BUN/Creat Ratio 13.3 RATIO (10-20); Calcium,Total 8.9 mg/dL (8.5-10.1); Chloride 105 mmol/L (98-107); EST Glomerular Filtration Rate 127 mL/min (>60); Est Glom Filt Rate - Afr Amer 154 mL/min (>60); Estimated Creatinine Clearance 121.62 ml/min; Globulin 4.8 g/dL (2.2-4.2); Glucose 81 mg/dL (74-106); Potassium 4.3 mmol/L (3.5-5.1); Sodium Level 137 mmol/L (136-145)
[2021-05-01] MEDS: Magnesium Sulfate 4gm/100mL 2 GM/50 ML IV.SOLN. IV (12:56)
[2021-05-01] MEDS: Labetalol (Prefilled) 20 MG/4 ML IV (13:00)
[2021-05-01] MEDS: Magnesium Sulfate 20 GM/500 ML BAG IV ×2 (13:10→21:59)
[2021-05-01] MEDS: Betamethasone/Betamethasone 30 MG/5 ML Vial 12 MG IM (13:13)
[2021-05-01] MEDS: miSOPROStol 25 MCG TABLET VAGINAL (13:38)
[2021-05-01] MEDS: Labetalol 100 MG Tablet PO (14:15)
[2021-05-01 16:58] LABS: Group B Strep DNA By PCR Negative (Negative); Internal Control PASS; Probe Check PASS; Specimen Processing Control PASS
[2021-05-01 17:42] LABS: Chlamydia Trachomatis by PCR Negative (Negative); Neisserai gonorrhoeae by PCR Negative (Negative); Probe Check PASS; Sample Adequacy Control PASS; Specimen Processing Control PASS
[2021-05-01] MEDS: miSOPROStol 50 MCG TABLET VAGINAL (18:15)
[2021-05-02] VITALS (95 sets, daily range): BP systolic 115–171; BP diastolic 58–101; PULSE 44–215; RESP 16–20; TEMP 36.3–37.1; O2SAT 80–100
[2021-05-02] MEDS: Labetalol 100 MG Tablet PO ×2 (00:12→09:56)
[2021-05-02] MEDS: miSOPROStol 50 MCG TABLET VAGINAL (00:18)
[2021-05-02] MEDS: Magnesium Sulfate 20 GM/500 ML BAG IV ×2 (07:22→17:11)
[2021-05-02] MEDS: Oxytocin 30 units/NS 500 ml 30 UNITS/500 ML IV.SOLN IV (07:43)
[2021-05-02] MEDS: Lactated Ringers 500 ML 999 ML IV (11:15)
[2021-05-02] MEDS: fentaNYL-bupivacaine (epidural) 100 ML BAG EPIDURAL ×2 (11:53→16:16)
[2021-05-02] MEDS: Sertraline 100 MG Tablet 75 MG PO (12:53)
[2021-05-02] MEDS: Penicillin G 3,000,000 Units 50 ML 100 UNITS IV ×2 (14:00→18:01)
--- NOTE | 2021-05-02 16:41 | PN_ITS ---
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 reviewed tracing abnormalities since last note: SAME A/P: CONTINUE INCREASING PITOCIN NEEDED.
--- NOTE | 2021-05-02 16:41 | PCM.PN.BLA ---
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 reviewed tracing abnormalities since last note: SAME A/P: CONTINUE INCREASING PITOCIN NEEDED.
--- NOTE | 2021-05-02 19:31 | PN_ITS ---
Progress Note pt is sitting in high mills's position and vomiting. Nursing just checked her cervix and report is that she is 6 cm dilated. current tracing: FHT: Moderate variability reactive with early decels [place]: q2 min Contractions reviewed tracing abnormalities since last note: improved but with early decels now A/P: continue current dose of pitocin and will give IV zofran and IV pepcid for vomiting.
[2021-05-02] MEDS: 0.9% Saline Lock 10 ML Syringe IV ×2 (19:32→21:38)
[2021-05-02] MEDS: Ondansetron 4 MG/2 ML Vial IV (19:32)
[2021-05-02] MEDS: proCHLORPERazine 10 MG/2 ML Vial IV (21:37)
[2021-05-02] MEDS: Lactated Ringers 1,000 ML 65 ML IV (22:06)
[2021-05-02] MEDS: Sodium Citrate/Citric Acid 30 ML UDC PO (22:24)
--- NOTE | 2021-05-02 22:30 | PCM.PN.BLA ---
Progress Note patient was taken to the OR urgently due to a prolonged deceleration that then recovered. She was brought back to the labor room where she pushed with minimal effort for just over an hour. A vacuum was applied to the head and pulled x1 with one pop off. The patient then pushed for an additional 20 minutes and requested a primary section due to fatigue. The risks, benefits and alternatives were discussed with the patient.
--- NOTE | 2021-05-02 23:45 | EX.PCM.OBRPT ---
Assessment & Plan (1) Pre-eclampsia, severe, antepartum: COMMENT: IOL 35 weeks, iv magnesium sulfate with fluid restriction, iv labetalol for htn protocol. maintenance dose continue. cytotec then pitocin, epi and arom PRN (2) Anemia affecting : QUALIFIERS: Trimester: third trimester Qualified Code(s): O99.013 - Anemia complicating , third trimester COMMENT: iron added (3) COVID-19 affecting , antepartum: COMMENT: in 2tm. 81 mg asa daily and growth us q4 (4) Supervision of high risk , antepartum: COMMENT: PRR NEETU:06/05/21 boy Dominic PC:Barney(Adopting) Spouse:Oscar (5) : QUALIFIERS: Weeks of gestation: 35 weeks Qualified Code(s): Z3A.35 - 35 weeks gestation of COMMENT: Declines ntd, NIPT and carrier, nl anatomy Maternal Data Information NEETU Calculator Estimated Delivery Date Method Current WG Current Estimate 06/05/21 Ultrasound #1 35w 1d Other Estimates 05/28/21 LMP (Uncertain) 36w 2d Details Operative Information Date of Procedure: 05/02/21 Pre-Operative Diagnosis: severe pre-eclampsia at 35 weeks, , maternal exhaustion, intolerance to labor Post-Operative Diagnosis: severe pre-eclampsia at 35 weeks, , maternal exhaustion, intolerance to labor Indications for : Nonreassuring Status and Failed vaccuum extraction Classification: LIYAH Procedure Type: low transverse overlock collar setter #1: Maureen, Type of Anesthesia: Spinal Anesthesiologist: Skip Vicente Antibiotic Given: Ancef 3 grams IV x1 and Zithromax 500 mg/5 mL X1 Estimated Blood Loss: 500cc Findings Description of Procedure: The patient is a 26 y/o @ 35 weeks gestation presented for induction due to severe pre-eclampsia. She progressed to complete and the tracing showed persistent deep variable decels. A kiwi vacuum was applied and pulled once, however due to poor maternal effort in pushing and request for per the patient, she was brought to the OR for section. Spinal anesthesia was placed without difficulty. White catheter was placed. The patient was placed in the dorsal supine position with leftward tilt. Patient was prepped and draped in the normal sterile fashion. Pfannenstiel skin incision was made with the scalpel and carried through to the underlying layer of fascia with the scalpel. Fascia was nicked in the midline and the incision extended laterally. The rectus bellies were dissected off superiorly and inferiorly with out complication both sharply and bluntly. The peritoneum was entered digitally. The incision was stretched and a low transverse uterine incision was made with the scalpel. The infant's head was delivered atraumatically followed by the anterior and posterior shoulders without complication the rest of the infant delivered. The cord was clamped and cut and the infant was handed off to awaiting nurse. The placenta was delivered spontaneously immediately following and was noted to be intact and have a three-vessel cord. The uterus was exteriorized cleared of all clots and debris, and the incision was closed in a double layer closure using #1 Monocryl. The ovaries and fallopian tubes were noted to be within normal limits. The uterus was returned to the maternal abdomen and gutters were cleared of all clots and debris. The peritoneum was closed with 3-0 Monocryl in a running fashion. Fascia was closed with 0 PDS in a running fashion. Subcutaneous tissue was copiously irrigated and the skin was closed with 3-0 Monocryl in a subcuticular fashion. Mepilex dressing was applied without complication. Patient was taken to recovery in stable condition. It was discussed with the patient that based on the clinical information obtained during this encounter, combined with her history, at this time I would recommend repeat section over for future deliveries if further pregnancies are desired due to the small size of the baby and the inability of the patient to push the baby through the canal. However, there are no obvious contraindications at this time for a future if so desired. Presentation: Positive for Vertex Amniotic Membrane Rupture Type: Artificial Time of Membrane Ruptured: 10:00 am 05/02/2021 Amniotic Fluid Description: Clear Placental Delivery Description: Expressed Placenta Disposition: [facility] Cord Vessel Description: 3 Vessels Cord Entanglement: None Cord Gases: ABG and VBG Infant A Gender: Male (1 minute): 2 (5 minute): 5 Delayed Cord Clamping: Yes Complications Risks of Surgery Discussed w/Patient: Bleeding, Anesthesia Risks, Infection, Need for Future C-Sections and Injury to surrounding structure(s) including bowel and bladder Multi Select Codes Urinary/Genital Urinary/Genital CPT Codes: 93789 Delivery global pkg
[2021-05-03] VITALS (66 sets, daily range): BP systolic 108–150; BP diastolic 55–85; PULSE 70–101; RESP 15–20; TEMP 36.1–36.8; O2SAT 85–99
[2021-05-03] MEDS: Oxytocin 30 units/NS 500 ml 30 UNITS/500 ML IV.SOLN 167 UNITS IV (00:05)
[2021-05-03] MEDS: Labetalol 100 MG Tablet PO (00:15)
[2021-05-03] MEDS: 0.9% Saline Lock 10 ML Syringe IV ×3 (01:29→22:02)
[2021-05-03] MEDS: Acetaminophen 500 MG Tablet 1000 MG PO ×4 (01:34→22:01)
[2021-05-03] MEDS: Ketorolac 30 MG/ML Syringe IV ×4 (01:34→22:02)
--- NOTE | 2021-05-03 02:30 | NURSING ---
A Kiiwi vacuum was applied at 2144 and pulled once, however due to poor maternal effort in pushing and request for per the patient, she was brought to the OR for section
[2021-05-03] MEDS: Lactated Ringers 1,000 ML 50 ML IV (03:29)
[2021-05-03] MEDS: Magnesium Sulfate 20 GM/500 ML BAG IV ×2 (03:49→14:04)
[2021-05-03 05:59] LABS: Hematocrit 30.6 % (37-47); Hemoglobin 9.3 g/dL (12.0-15.0); Mean Corp Hgb Conc 30.4 g/dL (32-36); Mean Corpuscular Hgb 23.5 pg (27.0-32.0); Mean Corpuscular Volume 77.5 fL (81-99); Platelet Count 235 K/mm3 (150-450); RBC Distribution Width CV 17.2 % (11.6-14.6); RBC Distribution Width SD 47.8 fl (35.1-43.9); Red Blood Count 3.95 M/mm3 (4.2-5.4)
--- NOTE | 2021-05-03 07:08 | CPS ---
SMI PLACED IN ROOM. NURSES WILL INSTRUCT. MOTHER CURRENTLY IN SPECIAL CARE NURSERY WITH BABY.
[2021-05-03] MEDS: Ferrous Sulfate 325 MG Tablet PO ×2 (08:53→18:26)
[2021-05-03] MEDS: Senna/Docusate Sodium 1 Tablet PO (10:22)
[2021-05-03] MEDS: Enoxaparin 40 MG/0.4 ML Syringe SC (10:22)
[2021-05-03] MEDS: Prenatal Vits Tablet 2 TABLET PO (12:00)
[2021-05-03] MEDS: Sertraline 50 MG Tablet 75 MG PO (12:05)
--- NOTE | 2021-05-03 17:43 | PCM.PN.OB ---
Subjective Subjective Patient doing well without complaints. Tolerating PO. Ambulating and voiding without difficulty. Feeding well. Denies chest pain, shortness of breath, calf pain/swelling, fevers, chills, lightheadedness. Objective Data Objective Data Vital Signs: Vital Signs Temp Pulse Resp BP Pulse Ox 97.7 F L 75 16 129/69 H 98 05/03/21 16:00 05/03/21 16:17 05/03/21 16:00 05/03/21 16:17 05/03/21 14:00 Oxygen Delivery Method Room Air Weight: 247 lb 9.6 oz Body Mass Index (BMI) 42.5 Intake & Output: Intake and Output for Last 24 Hours 05/01/21 05/02/21 05/03/21 23:59 23:59 23:59 Intake Total 1230.84 / 1230.84 3865.45 / 3865.45 2596.67 / 2596.67 Output Total 675 / 675 2650 / 2650 1256 / 1256 Balance 555.84 / 555.84 1215.45 / 1215.45 1340.67 / 1340.67 Lab / Micro Data Result Diagrams: 05/03/21 05:45 05/01/21 11:50 Labs: Laboratory Results - last 24 hr 05/03/21 05:45: WBC 16.0 H, RBC 3.95 L, Hgb 9.3 L, Hct 30.6 L, MCV 77.5 L, MCH 23.5 L, MCHC 30.4 L, RDW Std Deviation 47.8 H, RDW Coeff of Marlen 17.2 H, Plt Count 235, MPV 11.0 Micro: Microbiology 05/01/21 Unknown Genital vaginal Group B Streptococcus Culture - Preliminary Group B Beta Streptococcus is not isolated. 05/01/21 12:25 Nasal Secretion SARS-CoV-2 Antigen (Rapid) - Final ROS Constitutional Constitutional: Reports systems reviewed and no addt'l complaints, except as documented Cardiovascular Cardiovascular: Denies chest pain, dizziness, dyspnea or irregular heart rhythm Respiratory/Chest Respiratory/Chest: Denies cough, pain on inspiration or shortness of breath at rest Gastrointestinal Gastrointestinal: Denies abdominal pain, nausea or vomiting Genitourinary Genitourinary: Denies burning urination Musculoskeletal Musculoskeletal: Denies muscle cramps, muscle spasms or muscle weakness Neurologic Neurologic: Denies confusion, dizziness, headache(s) or lack of coordination Psychiatric Psychiatric: Denies anxiety, behavioral changes or depression Physical Exam HEENT normocephalic Resp normal respiratory effort and normal air movement GI soft to palpation, non-tender and non-distended Rectal Exam: other Other Details: Incision is clean, dry, and intact no CVA tenderness Extremity normal to inspection General Extremity: edema bilateral (trace ) Assessment & Plan (1) Pre-eclampsia, severe, antepartum: COMMENT: IOL 35 weeks, iv magnesium sulfate with fluid restriction, iv labetalol for htn protocol. maintenance dose continue. cytotec then pitocin, epi and arom PRN (2) Anemia affecting : QUALIFIERS: Trimester: third trimester Qualified Code(s): O99.013 - Anemia complicating , third trimester COMMENT: iron added (3) COVID-19 affecting , antepartum: COMMENT: in 2tm. 81 mg asa daily and growth us q4 (4) Vaginal bleeding during : COMMENT: Admitted with bleeding 02/02. MFM US 02/08 Small subchorionic bleed noted over internal os. 03/08 US nl, repeat growth US 4 wks (5) Other social stressor: COMMENT: Guardians for 2 yo son Barney - have custody hearing in march and hoping to get custody (6) Anemia: COMMENT: iron supplement, if doesn't improve recommend IV iron, per recheck in 4 wks due to increase but still low (7) Supervision of high risk , antepartum: COMMENT: PRR NEETU:06/05/21 boy Dominic PC:Barney(Adopting) Spouse:Oscar (8) : QUALIFIERS: Weeks of gestation: 35 weeks Qualified Code(s): Z3A.35 - 35 weeks gestation of COMMENT: Declines ntd, NIPT and carrier, nl anatomy (9) deliv due to previous difficult deliv, deliv, curr hospitaliz: PLAN: s/p LTCS PPD # 1 (less than 24 hrs) 1. routine post care 2. breast feeding- support given 3. rh positive 4. rubella immune 5. continue mag for the full 24 hrs. baby in NICU so will likely dc friday
[2021-05-04] VITALS (8 sets, daily range): BP systolic 134–186; BP diastolic 65–84; PULSE 72–90; RESP 14–18; TEMP 36.2–36.7; O2SAT 97–100
[2021-05-04] MEDS: Ibuprofen 600 MG Tablet PO ×3 (03:22→16:21)
[2021-05-04] MEDS: Acetaminophen 500 MG Tablet 1000 MG PO ×3 (03:22→16:22)
--- NOTE | 2021-05-04 08:24 | PCM.PN.OB ---
Subjective Subjective Patient is laying in bed comfortably without complaints. She states that she slept on an off during the night. Lochia is mild and pain is minimal. Objective Data Objective Data Vital Signs: Vital Signs Temp Pulse Resp BP Pulse Ox 97.3 F L 82 18 138/75 H 98 05/04/21 03:03 05/04/21 03:03 05/04/21 03:03 05/04/21 03:03 05/04/21 03:03 Oxygen Delivery Method Room Air Weight: 247 lb 9.6 oz Body Mass Index (BMI) 42.5 Intake & Output: Intake and Output for Last 24 Hours 05/02/21 05/03/21 05/04/21 23:59 23:59 23:59 Intake Total 3865.45 / 3865.45 4709.17 / 4709.17 Output Total 2650 / 2650 1816 / 1816 600 / 600 Balance 1215.45 / 1215.45 2893.17 / 2893.17 -600 / -600 Lab / Micro Data Result Diagrams: 05/03/21 05:45 05/01/21 11:50 Micro: Microbiology 05/01/21 Unknown Genital vaginal Group B Streptococcus Culture - Final Group B Beta Streptococcus is not isolated. 05/01/21 12:25 Nasal Secretion SARS-CoV-2 Antigen (Rapid) - Final ROS Constitutional Constitutional: Reports systems reviewed and no addt'l complaints, except as documented Cardiovascular Cardiovascular: Denies chest pain, dizziness, dyspnea or irregular heart rhythm Respiratory/Chest Respiratory/Chest: Denies cough, pain on inspiration or shortness of breath at rest Gastrointestinal Gastrointestinal: Denies abdominal pain, nausea or vomiting Genitourinary Genitourinary: Denies burning urination Musculoskeletal Musculoskeletal: Denies muscle cramps, muscle spasms or muscle weakness Neurologic Neurologic: Denies confusion, dizziness, headache(s) or lack of coordination Psychiatric Psychiatric: Denies anxiety, behavioral changes or depression Physical Exam HEENT normocephalic Resp normal respiratory effort and normal air movement GI soft to palpation, non-tender and non-distended Rectal Exam: other Other Details: Incision is clean, dry, and intact no CVA tenderness Extremity normal to inspection General Extremity: edema bilateral (trace ) Assessment & Plan (1) deliv due to previous difficult deliv, deliv, curr hospitaliz: (2) Pre-eclampsia, severe, antepartum: COMMENT: IOL 35 weeks, iv magnesium sulfate with fluid restriction, iv labetalol for htn protocol. maintenance dose continue. cytotec then pitocin, epi and arom PRN (3) Anemia affecting : QUALIFIERS: Trimester: third trimester Qualified Code(s): O99.013 - Anemia complicating , third trimester COMMENT: iron added (4) COVID-19 affecting , antepartum: COMMENT: in 2tm. 81 mg asa daily and growth us q4 (5) Vaginal bleeding during : COMMENT: Admitted with bleeding 02/02. MFM US 02/08 Small subchorionic bleed noted over internal os. 03/08 US nl, repeat growth US 4 wks (6) Other social stressor: COMMENT: Guardians for 2 yo son Barney - have custody hearing in march and hoping to get custody (7) Anemia: COMMENT: iron supplement, if doesn't improve recommend IV iron, per MH recheck in 4 wks due to increase but still low (8) Supervision of high risk , antepartum: COMMENT: PRR NEETU:06/05/21 boy Dominic PC:Barney(Adopting) Spouse:Oscar (9) : QUALIFIERS: Weeks of gestation: 35 weeks Qualified Code(s): Z3A.35 - 35 weeks gestation of COMMENT: Declines ntd, NIPT and carrier, nl anatomy PLAN: s/p LTCS PPD # 2 1. routine post care 2. breast feeding- support given 3. rh positive 4. rubella immune 5. blood pressures are normal 6. patient would like to be dc'd to home - will need to follow up in one week for bp check and dressing removal
--- NOTE | 2021-05-04 08:26 | PCM.DC ---
Discharge Instructions Diet Discharge Diet: No restrictions Activity Discharge Activity: May Not Drive (for 2 weeks or while taking narcotic pain medications.), May Shower and May Take a Tub Bath (in 7 days.) May resume sexual activity in: 4-6 weeks Weight Bearing Status: Full weight bearing Lifting Restrictions: 20 pounds Dressing / Incision Call your doctor if your incision/area has: Continuous Slow Oozing, Sudden Increased Bleeding, Increased Pain/ Swelling, Increased Redness and Foul Smelling Discharge Call your doctor if you observe: Fever of 101 or Higher and Using more than 1 pad per hour Suture Line Care: Avoid Pulling/Pushing and Avoid Pinching/Bending Cleanse incision/area with: Soap & Water and Keep Dressing Clean & Dry Follow Up Care Please Follow Up With: Saloni Castellano DO When: Call [phone] to make an appointment for an incision check in 1-2 weeks. Test Results: Test results from this visit will be discussed in further detail at your follow-up appointment, if applicable. Discharge Plan Admission Admit Date/Time: 05/01/21 12:45 Primary Reason for Your Visit: severe pre-eclampsia Attending Provider: Saloni Castellano Primary Care Provider: Sharmin August Discharge Orders/Prescriptions Prescriptions: New ibuprofen 800 mg tablet 800 mg PO Q8H PRN (Reason: pain) 7 Days Qty: 30 RF: 0 oxycodone-acetaminophen [oxycodone-acetaminophen] 1 TABLET tablet 1 - 2 tab PO Q6H PRN (Reason: pain) 7 Days Qty: 30 RF: 0 docusate sodium [Colace] 100 mg capsule 100 mg PO DAILY 14 Days Qty: 14 RF: 0 nifedipine 30 mg Tablet Extended Release 24hr 30 mg PO DAILY 30 Days Qty: 30 RF: 0 Continued sertraline 50 mg tablet 75 mg PO DAILY Qty: 45 RF: 4 ferrous sulfate [iron] 325 mg (65 mg iron) Tablet 325 mg PO BID RF: 0 [id number] 1 mg Tablet 2 tab PO DAILY RF: 0 Discontinued aspirin 81 mg Tablet,Chewable 81 mg PO DAILY RF: 0 nifedipine [Procardia XL] 30 mg tablet extended release 24hr 30 mg PO DAILY Qty: 30 RF: 2 No Action (DME) Blood Pressure Cuff Misc See Rx Instructions .ROUTE .MEDSUPPLY Qty: 1 RF: 0 Referrals / Follow Up: Sharmin August, PA [Primary Care Provider] - Disposition Disposition (needs filled in before D/C Order can be placed): Home, Self Care
[2021-05-04] MEDS: Enoxaparin 40 MG/0.4 ML Syringe SC (09:41)
[2021-05-04] MEDS: Prenatal Vits Tablet 2 TABLET PO (09:42)
[2021-05-04] MEDS: Sertraline 50 MG Tablet 75 MG PO (09:42)
[2021-05-04] MEDS: NIFEdipine 30 MG Tablet PO ×2 (09:42→15:22)
[2021-05-04] MEDS: Ferrous Sulfate 325 MG Tablet PO (09:42)
[2021-05-04] MEDS: Senna/Docusate Sodium 1 Tablet PO (09:44)
--- NOTE | 2021-05-04 17:14 | NURSING ---
Patient BP 149/65. Instructed to take BP 1-2 times a day and record results. Call the office if BP is over 150/90 to notify the OB. Patient remains asymptomatic. States she is anxious about seeing her 2-year-old at home. Instructed to take 60mg Procardia XL po daily starting tomorrow. Patient expresses understanding.
== END 2021-05-04 17:20 | disposition home or self-care (01) | DRG 540 ==
LOC: WPOUT 12:48 → WP 12:48
PROVIDERS: Admitting Provider Obstetrics & Gynecology; PCP Physician Assistant; Referring Provider Obstetrics & Gynecology; Visit Provider Obstetrics & Gynecology
DX: O14.14 Severe pre-eclampsia complicating childbirth (principal); O76 Abnormality in fetal heart rate and rhythm complicating labor and delivery; O66.5 Attempted application of vacuum extractor and forceps; O26.813 Pregnancy related exhaustion and fatigue, third trimester; O34.219 Maternal care for unspecified type scar from previous cesarean delivery; O99.892 Other specified diseases and conditions complicating childbirth; R73.03 Prediabetes; O99.02 Anemia complicating childbirth; D64.9 Anemia, unspecified; Z79.82 Long term (current) use of aspirin; Z79.899 Other long term (current) drug therapy; Z3A.35 35 weeks gestation of pregnancy; Z37.0 Single live birth
CPT/HCPCS: 59025; 59050; 76815; 80053; 85027; 86850; 86900; 86901; 87081; 87426; 87491; 87591; 87653; 99218; J7120; A4216; G0378; J0702; J2405; J3490

== ENCOUNTER 2021-05-01 20:18 | Outpatient (CLI) | payer MEDICAID, SELFPAY ==
[2021-05-01 11:36] LABS: Protein, Urine (Random) 150.1 mg/dL (<11.9); Protein:Creat Ratio 1846 mg/g CRE (0-200)
== END 2021-05-01 23:59 | disposition home or self-care (01) ==
LOC: LABSPEC 07-25 20:19
PROVIDERS: Nurse Practitioner Women's Health; PCP Physician Assistant; Referring Provider Obstetrics & Gynecology; Visit Provider Obstetrics & Gynecology
DX: O16.3 Unspecified maternal hypertension, third trimester (principal); Z3A.00 Weeks of gestation of pregnancy not specified
CPT/HCPCS: 82570; 84156

== ENCOUNTER → 2021-11-26 | Outpatient (CLI) | payer MEDICAID, SELFPAY ==
[2021-11-26 12:50] LABS: Hematocrit 38.8 % (37-47); Hemoglobin 11.3 g/dL (12.0-15.0); Mean Corp Hgb Conc 29.1 g/dL (32-36); Mean Corpuscular Volume 75.5 fL (81-99); Mean Platelet Vol. 9.5 fl (6.2-12.0); Platelet Count 250 K/mm3 (150-450); RBC Distribution Width CV 16.9 % (11.6-14.6); RBC Distribution Width SD 45.5 fl (35.1-43.9); Red Blood Count 5.14 M/mm3 (4.2-5.4); White Blood Count 7.5 K/mm3 (4.4-11.0)
[2021-11-26 13:18] LABS: Vitamin B12 844 pg/mL (211-911); Vitamin D,25 Hydroxy 33.3 ng/mL
[2021-11-26 13:24] LABS: T4 Free Direct 0.86 ng/dL (0.76-1.46); Thyroid Stim Hormone (TSH) 1.68 uIU/mL (0.358-3.74)
== END | disposition home or self-care (01) ==
LOC: PAVLAB 12:15
PROVIDERS: PCP Physician Assistant; Visit Provider Obstetrics & Gynecology
DX: R45.86 Emotional lability (principal); R53.83 Other fatigue; D64.9 Anemia, unspecified
CPT/HCPCS: 36415; 82306; 82607; 84439; 84443; 85027

== ENCOUNTER → 2025-01-28 | Outpatient (CLI) | payer MEDICAID, SELFPAY ==
[2025-02-02 16:09] LABS: HPV APTIMA, High Risk Negative (Negative)
== END | disposition home or self-care (01) ==
LOC: LABSPEC 16:15
PROVIDERS: PCP Physician Assistant; Visit Provider Obstetrics & Gynecology
DX: Z12.4 Encounter for screening for malignant neoplasm of cervix (principal)
CPT/HCPCS: 87624; 88175; G0145